=== PATIENT | male | born 1975 | race Caucasian/White ===

== ENCOUNTER 2020-07-06 05:51 | Emergency (ER) | payer OTHER, SELFPAY ==
--- NOTE | ~2020-07-06 | CT_ITS ---
EXAMINATION: CT abdomen pelvis w con EXAM DATE: 07/06/2020 06:54 INDICATION: Left lower quadrant pain, nausea vomiting and diarrhea. TECHNIQUE: Spiral CT of the abdomen and pelvis was performed following intravenous injection of 100 m L Omnipaque 350. Axial, coronal and sagittal images were reviewed. The dose-length product (DLP) fo r this examination was 362.79 mGy-cm. The exposure was tailored according to patient size (auto mA e xposure control), and iterative reconstruction (ASIR) was used as additional dose reduction technique . Comparison is made to prior examination from 08/12/2019. FINDINGS: The liver, spleen, adrenal glands and pancreas are unremarkable. Gallbladder is unremarkab le. No biliary obstruction. Portal and splenic veins are patent. Kidneys enhance symmetrically. T here is no hydronephrosis. The prostate is unremarkable. The bladder is unremarkable. There is no retroperitoneal or pelvic lymphadenopathy. The appendix is normal. The stomach and small bowel are unremarkable. There is colonic fluid, corre late for diarrhea. There is mild sigmoid colonic diverticulosis, equivocal mild adjacent inflammation . No free intraperitoneal gas. The heart is normal in size. There are no pericardial or pleural e ffusions. The lung bases are unremarkable. The bones are unremarkable. IMPRESSION: 1. Mild colonic diverticulosis with equivocal adjacent fat stranding, possible mild uncomplicated di verticulitis. 2. Colonic fluid, diarrhea without wall thickening. Consider enteritis. Reviewed, dictated and finalized at location A. IMPRESSION: 1. Mild colonic diverticulosis with equivocal adjacent fat stranding, possible mild uncomplicated diverticulitis. 2. Colonic fluid, diarrhea without wall thickening. Consider enteritis.
[2020-07-06 05:54] VITALS: BP 107/79; PULSE 96; RESP 19; TEMP 36.1; O2SAT 99
--- NOTE | 2020-07-06 06:10 | PC.NURSE ---
Pt. states he is unable to urinate at this time.
[2020-07-06] MEDS: ONDANSETRON INJ 4 MG/2 ML VIAL IV PUSH (06:23)
[2020-07-06] MEDS: SODIUM CHLORIDE 0.9% IV 1,000 ML 999 ML IV CONT (06:24)
[2020-07-06] MEDS: MORPHINE SULFATE (*CRX) 4 MG/ML INJ IV PUSH (06:25)
--- NOTE | 2020-07-06 06:32 | PC.NURSE ---
Pt. states he will try to urinate after he gets fluids.
[2020-07-06 06:34] LABS: Basophils Percent Auto 0.4 % (0.2-1.2); Eosinophils Absolute Auto 0.2 K/mm3 (0-0.3); Eosinophils Percent Auto 2.1 % (0-4.4); Hemoglobin 17.6 g/dL (14.0-18.0); Immature Granulocyte Absolute 0.04 K/mm3 (0.00-0.031); Immature Granulocyte Percent A 0.4 % (0-0.5); Lymphocytes Absolute Auto 1.95 K/mm3 (0.9-3.2); Lymphocytes Percent Auto 19.3 % (18.3-44.2); Mean Corpuscular Hemoglobin 28.6 pg (26-34); Mean Corpuscular Volume 89.4 fl (80-100); Mean Platelet Volume 9.3 fl (7.4-10.4); Monocytes Absolute Auto 0.8 K/mm3 (0.1-0.6); Monocytes Percent Auto 7.4 % (2.6-8.5); Neutrophils Absolute Auto 7.1 K/mm3 (1.3-6.7); Neutrophils Percent Auto 70.4 % (45.5-73.1); Platelet Count Result 228 k/mm3 (150-375); Red Blood Count 6.15 M/mm3 (4.6-6.20); Red Cell Distribution Width 13.3 % (11.5-14.5); White Blood Count 10.1 K/mm3 (4.5-10.0)
[2020-07-06 06:35] LABS: Alanine Aminotransferase 90 U/L (4-50); Albumin Level 4.1 g/dL (3.5-5.1); Alkaline Phosphatase 158 U/L (38-126); Anion Gap 10 mmol/L (8-16); Aspartate Amino Transferase 37 U/L (17-59); Bilirubin,Total 1.2 mg/dL (0.2-1.3); Blood Urea Nitrogen 17 mg/dL (9-20); Calcium 9.5 mg/dL (8.4-10.2); Carbon Dioxide 28 mmol/L (22-30); Chloride 101 mmol/L (98-107); Estimated CRCL calculation 80 ml/min; Estimated Glomerular Filt Rate > 60; Glucose 170 mg/dL (75-110); Lipase 41 U/L (23-300); Potassium 3.9 mmol/L (3.4-5.0); Sodium 139 mmol/L (137-145)
--- NOTE | 2020-07-06 06:44 | ED.NAVMDI ---
HPI - Nausea/Vomiting/Diarrhea General Chief complaint: Nausea/Vomiting/Diarrhea <Jonh Galvan MD - Last Filed: 07/06/20 07:10> Stated complaint: N/V/D <Jonh Galvan MD - Last Filed: 07/06/20 07:10> Time Seen by Provider: 07/06/20 06:06 <Jonh Galvan MD - Last Filed: 07/06/20 07:10> History of Present Illness HPI Narrative: Patient is a 45-year-old male who presents ER with nausea and vomiting diarrhea. Ongoing for 3 days. Reports he is having a loose stool as small in volume every 15 minutes. He has not been on antibiotics. No known sick contacts. No travel. No drinking from untreated water sources. He has since developed pain in the left lower quadrant of his abdomen that goes into his rectum. Patient also reports he is now dry heaving because he has nothing left to vomit. <Jonh Galvan MD - Last Filed: 07/06/20 07:10> Related Data Home medications: Home Medications Medication Instructions Recorded Confirmed ranitidine HCl [Zantac] 150 mg PO DAILY 08/12/19 11 <Jonh Galvan MD - Last Filed: 07/06/20 07:10> Allergies/Adverse reactions: Allergies Allergy/AdvReac Type Severity Reaction Status Date / Time No Known Allergies Allergy Mild Verified 07/06/20 06:19 <Jonh Galvan MD - Last Filed: 07/06/20 07:10> Review of Systems Review of Systems: All systems reviewed & are unremarkable except as noted in HPI and below <Jonh Galvan MD - Last Filed: 07/06/20 07:10> Constitutional: Constitutional: Denies chills, Denies fever(s) and Denies weakness <Jonh Galvan MD - Last Filed: 07/06/20 07:10> ENT: Denies nasal congestion and Denies sore throat <Jonh Galvan MD - Last Filed: 07/06/20 07:10> Gastrointestinal: Gastrointestinal: Reports abdominal pain, Denies constipation, Reports diarrhea, Reports nausea and Reports vomiting <Jonh Galvan MD - Last Filed: 07/06/20 07:10> Genitourinary: Genitourinary: Denies dysuria and Denies urinary frequency <Jonh Galvan MD - Last Filed: 07/06/20 07:10> PMFSH Past Medical History Medical History: Medical History (Updated 07/06/20 @ 07:08 by Jonh Galvan MD) Myotonic muscular dystrophy <Jonh Galvan MD - Last Filed: 07/06/20 07:10> Surgical History Surgical History: Surgical History (Updated 07/06/20 @ 06:46 by Jonh Galvan MD) No history of previous surgery <Jonh Galvan MD - Last Filed: 07/06/20 07:10> Social History Social History: Social History (Updated 08/12/19 @ 16:06 by Alexi Hinkle) Smoking status: Never smoker Gender identity (if verbalized by the patient): Male <Jonh Galvan MD - Last Filed: 07/06/20 07:10> Exam Narrative: Exam Narrative: GENERAL: Well-appearing, well-nourished, and in no acute distress. HEAD: Normocephalic, atraumatic. CHEST: Clear to auscultation. No respiratory distress. HEART: Regular rate and rhythm. Normal peripheral pulses. ABDOMEN: Soft, nontender, nondistended. EXTREMITIES: Normal range of motion. No edema. SKIN: Warm, dry, no rash. NEURO: Alert and oriented x3. PSYCH: Normal mood and affect. <Jonh Galvan MD - Last Filed: 07/06/20 07:10> Course Vital Signs Vital signs: Vital Signs Temperature 36.1 C L 07/06/20 05:54 Pulse Rate 96 07/06/20 05:54 Respiratory Rate 07/06/20 05:54 Blood Pressure 107/79 07/06/20 05:54 Pulse Oximetry 99 07/06/20 05:54 Temperature 36.1 C L 07/06/20 05:54 Pulse Rate 96 07/06/20 05:54 Respiratory Rate 19 07/06/20 05:54 Blood Pressure 107/79 07/06/20 05:54 Pulse Oximetry 99 07/06/20 05:54 <Jonh Galvan MD - Last Filed: 07/06/20 07:10> Vital Signs Temperature 36.1 C L 07/06/20 05:54 Pulse Rate 96 07/06/20 05:54 Respiratory Rate 19 07/06/20 05:54 Blood Pressure 107/79 07/06/20 05:54 Pulse Oximetry 99 07/06/20 05:54 Temperature 36.1
== END 2020-07-06 07:50 | disposition home or self-care (01) ==
PROVIDERS: Emergency Provider Emergency Medicine
DX: K57.92 Diverticulitis of intestine, part unspecified, without perforation or abscess without bleeding (principal); G71.11 Myotonic muscular dystrophy; K57.90 Diverticulosis of intestine, part unspecified, without perforation or abscess without bleeding
CPT/HCPCS: 36415; 74177; 80053; 83690; 85025; 96361; 96374; 96375; 99284; J2270; J2405; J7030; Q9967

== ENCOUNTER 2023-01-24 09:57 | Inpatient (IN) | payer MEDICARE, MEDICAID, SELFPAY ==
[2023-01-24] VITALS (24 sets, daily range): BP systolic 115–154; BP diastolic 75–104; PULSE 70–87; RESP 12–21; TEMP 35.7–37.2; O2SAT 90–100; BMI 24.5
--- NOTE | ~2023-01-24 | US_ITS ---
Limited Abdominal Sonogram: Real-time sonographic imaging of the right upper quadrant was performed. Clinical History: Pancreatitis Findings: The liver appears normal with no evidence of mass lesion or bile duct dilatation. Main por salvatore vein demonstrates normal direction of flow. The gallbladder is well distended, without evidence o f gallstone. Gallbladder wall is mildly thickened to 5 mm. The common bile duct measures 4 mm. The v isualized pancreas, aorta, and IVC are unremarkable. Impression: Mild gallbladder wall thickening without gallstones, nonspecific finding. Reviewed, dictated and finalized at location M. Impression: Mild gallbladder wall thickening without gallstones, nonspecific finding.
--- NOTE | ~2023-01-24 | CT_ITS ---
Non-contrast CT scan of the Abdomen and Pelvis Clinical indication: Right flank pain Technique: 2.5 mm axial scans were obtained through the abdomen and pelvis without intravenous or or al contrast. Dose reduction technique was used on this scan by utilizing automated exposure control a nd iterative reconstruction technique. The dose-length product (DLP) was 502.97 mGy-cm. COMPARISON: 07/06/2020 Findings: Images through the lung bases reveal probable bibasilar atelectatic change or scarring, le ss likely pneumonia. There is no evidence of renal or ureteral calculi. The kidneys and the ureters are nondilated. The liver, spleen, gallbladder, and adrenals appear normal. There is mild peripancreatic inflammatory change. There is no aortic aneurysm. There is no evidence of bowel obstruction. Images through the pelvis were performed. There is no evidence of ascites or lymphadenopathy. Urinary bladder unremarkable. Prostate gland and seminal vesicles are unremarkable. Impression: Probable mild acute pancreatitis. Correlate clinically. Reviewed, dictated and finalized at [facility]. Impression: Probable mild acute pancreatitis. Correlate clinically.
--- NOTE | ~2023-01-24 | XR_ITS ---
EXAMINATION: XR chest 1V portable INDICATION: Shortness of breath TECHNIQUE: Portable AP chest at 0748 hours COMPARISON: 01/25/2023 FINDINGS: Airspace opacities persist in the lung bases without significant change. Small pleural effu sions are suggested. There is no pneumothorax. The cardiomediastinal silhouette is stable. IMPRESSION: 1. Stable bibasilar airspace opacities, consistent with atelectasis versus pneumonia. Reviewed, dictated and finalized at location A. IMPRESSION: 1. Stable bibasilar airspace opacities, consistent with atelectasis versus pneu monia.
--- NOTE | ~2023-01-24 | MR_ITS ---
EXAMINATION: MR MRCP wo/w con/w 3D wo ind DATE: 01/25/2023 11:46 INDICATION: Pancreatitis TECHNIQUE: Magnetic resonance imaging (MRI) of the abdomen was performed without and with 16 mL Multi kurt intravenous contrast. Sequences included coronal T2-weighted SS-FSE, coronal T2-weighted FS SS- FSE, coronal T2-weighted FS FIESTA, axial T2-weighted FS FIESTA, axial T2-weighted FIESTA, sagittal T 2-weighted SS-FSE, axial T1-weighted dual-echo FSPGR, axial T2-weighted SS-FSE, axial T1-weighted LAV A, axial T2-weighted STIR FSE. Thick-slab T2-weighted FRFSE-XL images were obtained for magnetic reso nance cholangiopancreatography (MRCP). Rotating maximum intensity projection 3-D reconstructions of t he volumetric data were created by the technologist. Postcontrast sequences included a time course of axial T1-weighted LAVA. COMPARISON: None. FINDINGS: ABDOMEN MRI: Small bilateral pleural effusions. Consolidation with volume loss consistent with atelectasis in the basilar segments of the bilateral lower lobes. Additional consolidation in the dependent right middle lobe. Superimposed pneumonia not excludable. Heart size is normal. No pericardial effusion. Small sl iding-type hiatal hernia. Small amount of likely reactive ascites in the visualized abdomen including along the gallbladder, liver and spleen which are otherwise normal no evident cholelithiasis. Bilate ral adrenal glands and right kidney are normal. There are couple subcentimeter cysts at the upper ginette e of the right kidney. There is peripancreatic inflammatory stranding/edema greatest about the tail o f the pancreas consistent with acute interstitial pancreatitis. Additional retroperitoneal edema exte nds around the duodenum and along the bilateral anterior pararenal spaces, left greater than right an d the left paracolic gutter. There is homogeneous pancreatic parenchymal enhancement with no evident necrosis. No loculated fluid collections. No pathologically enlarged abdominal lymphadenopathy. Visua lized portions of bowels are unremarkable. Vasculature is unremarkable with no evident thrombus in th e splenic, superior mesenteric or portal veins. Normal bone marrow signal throughout. ABDOMEN MRCP: Common bile duct is normal in caliber measuring up to 4 mm in maximal diameter. No strictures, mucosa l irregularities or filling defects to suggest choledocholithiasis. No intrahepatic biliary ductal di lation. The main pancreatic duct also appears normal measuring up to 2 mm in maximal diameter at the head of the pancreas and gradually tapering the more distal body and tail. IMPRESSION: 1. Peripancreatic/retroperitoneal inflammatory stranding consistent with radiographically uncomplicat ed acute interstitial pancreatitis. 2. Small amount of reactive ascites in the abdomen. 3. Small bilateral pleural effusions with consolidation in the right middle lobe as well as in the bi lateral lower lobes where there is associated volume loss consistent with atelectasis. Superimposed p neumonia not excludable. 4. Normal gallbladder with no biliary ductal dilation or cholelithiasis/choledocholithiasis. Reviewed, dictated and finalized at location A. IMPRESSION: 1. Peripancreatic/retroperitoneal inflammatory stranding consistent with radiog raphically uncomplicated acute interstitial pancreatitis. 2. Small amount of reactive ascites in the abdomen. 3. Small bilateral pleural effusions with consolidation in the right middle lob e as well as in the bilateral lower lobes where there is associated volume loss consistent with atelectasis. Superimposed pneumonia not excludable. 4. Normal gallbladder with no biliary ductal dilation or cholelithiasis/choledo cholithiasis.
--- NOTE | ~2023-01-24 | XR_ITS ---
XR chest 1V portable 01/25/2023 10:14 Indication: Cough. Crackles. Procedure: AP portable chest Comparison: No prior studies for comparison. Findings: Patchy bilateral airspace disease, compatible with pneumonia. Small right pleural effusion. No pneumothorax. No acute osseous abnormality. Impression: 1: Patchy bilateral airspace disease, compatible with pneumonia. Reviewed, dictated and finalized at location A. Impression: 1: Patchy bilateral airspace disease, compatible with pneumonia.
--- NOTE | ~2023-01-24 | NM_ITS ---
EXAMINATION: NM hepatobiliary wo pharm DATE: 01/28/2023 10:14 INDICATION: Right upper quadrant abdominal pain. COMPARISON: MRCP 01/25/2023 TECHNIQUE: 5.5 mCi Tc-99m mebrofenin (Choletec) was administered intravenously. Scintigraphic images of the abdomen were obtained for one hour and 15 minutes. Then, 2 mg morphine IV was administered, a nd imaging was continued for 30 minutes. FINDINGS: There is normal clearance of radiotracer from the blood pool. There is homogeneous tracer u ptake by the liver. Activity progresses to the bowel and gallbladder. IMPRESSION: 1. Patent cystic duct and common duct. Reviewed, dictated and finalized at location A.
[2023-01-24 10:53] LABS: Basophils Percent Auto 0.4 % (0.2-1.2); Eosinophils Absolute Auto 0.2 K/mm3 (0-0.3); Eosinophils Percent Auto 1.4 % (0-4.4); Hematocrit 50.4 % (42.0-52.0); Immature Granulocyte Absolute 0.05 K/mm3 (0.00-0.031); Immature Granulocyte Percent A 0.4 % (0-0.5); Lymphocytes Absolute Auto 1.52 K/mm3 (0.9-3.2); Lymphocytes Percent Auto 13.5 % (18.3-44.2); Mean Corpuscular HGB Conc 31.7 g/dl (32-36); Mean Corpuscular Hemoglobin 28.5 pg (26-34); Mean Corpuscular Volume 89.7 fl (80-100); Mean Platelet Volume 8.8 fl (7.4-10.4); Monocytes Absolute Auto 0.7 K/mm3 (0.1-0.6); Neutrophils Absolute Auto 8.8 K/mm3 (1.3-6.7); Neutrophils Percent Auto 78.3 % (45.5-73.1); Platelet Count Result 247 k/mm3 (150-375); Red Blood Count 5.62 M/mm3 (4.6-6.20); Red Cell Distribution Width 13.8 % (11.5-14.5); White Blood Count 11.2 K/mm3 (4.5-10.0)
--- NOTE | 2023-01-24 11:05 | ED.ABDPAIN ---
HPI - Abdominal Pain General Chief Complaint: Abdominal Pain <RICKEY Vargas Last Filed: 01/24/23 12:39> Stated Complaint: left abdominal pain starting last night <RICKEY Vargas Last Filed: 01/24/23 12:39> Time Seen by Provider: 01/24/23 10:30 <RICKEY Vargas Last Filed: 01/24/23 12:39> Source: patient <RICKEY Vargas Last Filed: 01/24/23 12:39> Mode of arrival: ambulatory <RICKEY Vargas Last Filed: 01/24/23 12:39> Limitations: no limitations <RICKEY Vargas Last Filed: 01/24/23 12:39> History of Present Illness HPI narrative: Patient is a 47 y/o male, with past medical history of myotonic muscular dystrophy, who presents to the ED with c/o right-sided abdominal pain. Patient reports the pain began last night around midnight and his right mid back. It has since radiated around his right sided abdomen. He complains of pain from his right upper abdomen to his right lower groin. He does report having some nausea, vomiting, dry heaving associated with the pain. He has never had pain like this before. Denies history of kidney stones. Denies dysuria, difficulty urinating, hematuria, diarrhea, constipation, fevers. Patient does mention having an ongoing issue with a rectal hemorrhoid that occasionally bleeds with bowel movements. His last bowel movement was yesterday and normal. <RICKEY Vargas Last Filed: 01/24/23 12:39> Related Data Home Medications: Home Medications Medication Instructions Recorded Confirmed sildenafil 100 mg tablet 100 mg PO DAILY PRN Sexual Activity 01/24/23 01/24/23 <RICKEY Vargas Last Filed: 01/24/23 12:39> Allergies/Adverse Reactions: Allergies Allergy/AdvReac Type Severity Reaction Status Date / Time No Known Allergies Allergy Mild Verified 01/24/23 10:39 <RICKEY Vargas Last Filed: 01/24/23 12:39> Review of Systems Review of Systems: CONSTITUTIONAL: Denies fever, chills, or sweats. CARDIOVASCULAR: Denies chest pain. RESPIRATORY: Denies dyspnea. GASTROINTESTINAL: See HPI. GENITOURINARY: Denies difficulty urinating, dysuria or hematuria. SKIN: Denies rash or itching. MUSCULOSKELETAL: See HPI. NEUROLOGIC: Denies headache, numbness, or weakness. <Kenna Regalado PA-C - Last Filed: 01/24/23 12:39> All systems reviewed & are unremarkable except as noted in HPI and below <Kenna Regalado PA-C - Last Filed: 01/24/23 12:39> PMFSH Past Medical History Medical History: Medical History Myotonic muscular dystrophy <Kenna Regalado PA-C - Last Filed: 01/24/23 12:39> Surgical History Surgical History: Surgical History No history of previous surgery <Kenna Regalado PA-C - Last Filed: 01/24/23 12:39> Family History Family History: Family History Mother COVID <RICKEY Vargas Last Filed: 01/24/23 12:39> Social History Social History: Social History Social History: He lives with his father and has no children. He is single. He is currently unemployed. Code status full code Smoking status: Never smoker Alcohol intake: former Alcohol use details: None in last 1 year Substance use: never Substance use type: does not use Lack of Transportation: No Lack of Food: Never True Current Housing: I Have Housing Concerned About Future Housing: No Difficulty Paying Gas/Electric Bills: No Difficulty Paying for Meds: No Currently Unemployed: No Education: High School Diploma/GED Difficulty w/ Childcare or Family Care: No Gender identity (if verbalized by the patient): Male Spiritual care concerns: No <Kenna Jasmine
[2023-01-24] MEDS: SODIUM CHLORIDE 0.9% IV 1,000 ML 999 ML IV CONT ×3 (11:07→12:29)
[2023-01-24] MEDS: ONDANSETRON INJ 4 MG/2 ML VIAL IV PUSH (11:08)
[2023-01-24] MEDS: MORPHINE SULFATE (*CRX) 4 MG/ML INJ IV PUSH ×2 (11:08→15:39)
[2023-01-24 11:13] LABS: Alanine Aminotransferase 132 U/L (6-50); Albumin Level 3.8 g/dL (3.5-5.1); Alkaline Phosphatase 230 U/L (38-126); Aspartate Amino Transferase 169 U/L (17-59); Blood Urea Nitrogen 14 mg/dL (9-20); Calcium 8.9 mg/dL (8.4-10.2); Carbon Dioxide 35 mmol/L (22-30); Chloride 103 mmol/L (98-107); Estimated CRCL calculation 100 ml/min; Estimated Glomerular Filt Rate > 60; Glucose 219 mg/dL (65-110)
[2023-01-24 11:14] LABS: Anion Gap 3 mmol/L (8-16); Bilirubin,Total 2.4 mg/dL (0.2-1.3); Sodium 141 mmol/L (137-145)
[2023-01-24 12:15] LABS: Lipase 28203 U/L (23-300)
--- NOTE | 2023-01-24 13:27 | PM.IMHP ---
H&P: HPI History of Present Illness Date/Time: 01/24/23 13:27 Chief Complaint: Abdominal pain Narrative: This is a 47-year-old male patient who has a history of myotonic muscular dystrophy. The patient came to the emergency room with complaints of abdominal pain that had started last night around midnight. It started in his right upper quadrant and came around to his mid back. The patient starts in the right upper quadrant and extends through the right lower quadrant. He denies any fever chills. No difficulty urinating. He does endorse nausea with vomiting. His bowel movements were normal yesterday. The patient was medicated with morphine prior to me examining him in the emergency room. The patient was snoring loudly but denies any sleep apnea. The patient was also given IV fluids and Zofran in the emergency room. His white count is 11.2. AST is 169, ALT is 132, alkaline phosphatase is 230. Lipase is 28,203. The patient denies any alcohol abuse. His alcohol level is less than 10. Abdominal ultrasound is read as mild gallbladder wall thickening without gallstones nonspecific findings. Abdominal pelvis CT was read as probable mild acute pancreatitis. GI has been consulted. The patient is being admitted to observation status on the date of service of 01/24/2023. Review of Systems Review of Systems: All systems reviewed & are unremarkable except as noted in HPI and below Constitutional: Constitutional: Reports as per HPI and Reports no additional constitutional complaints Eyes: Eyes: Reports as per HPI and Reports no additional eye complaints ENT: Reports system reviewed and no additional complaints, except as documented and Reports Normal hearing present Cardiovascular: Cardiovascular: Reports no additional cardiovascular complaints Respiratory: Respiratory: Reports no additional respiratory complaints and Reports no additional respiratory complaints Gastrointestinal: Gastrointestinal: Reports as per HPI and Reports no additional gastrointestinal complaints Musculoskeletal: Musculoskeletal: Reports no additional musculoskeletal complaints Integumentary/Breasts: Skin/Breast: Reports system reviewed and no additional complaints, except as docu and Reports as per HPI Neurologic: Reports system reviewed and no additional complaints, except as documented, Reports as per HPI and Reports Normal hearing present Psychiatric: Psychiatric: Reports no additional psychiatric complaints and Reports as per HPI Endocrine: Endocrine: Reports no additional endocrine complaints Hematologic/Lymphatic: Hematologic/Lymphatic: Reports no additional hematologic/lymphatic complaints Allergic/Immunologic: Allergic/Immunologic: Reports no additional allergic/immunologic complaints [facility] Past Medical History Medical History Myotonic muscular dystrophy Surgical History Surgical History No history of previous surgery Family History Family History Mother COVID Social History Social History (Updated 01/24/23 @ 15:38 by Eun Gleason NP) Social History: He lives with his father and has no children. He is single. He is currently unemployed. Code status full code Smoking status: Never smoker Alcohol intake: former Alcohol use details: None in last 1 year Substance use: never Substance use type: does not use Lack of Transportation: No Lack of Food: Never True Current Housing: I Have Housing Concerned About Future Housing: No Difficulty Paying Gas/Electric Bills: No Difficulty Paying for Meds: No Currently Unemployed: No Education: High School Diploma/GED Difficulty w/ Childcare or Family Care: No Gender identity (if verbalized by the patient): Male Spiritual care concerns: No Meds Home Medications and Allergies Ho
--- NOTE | 2023-01-24 14:14 | PC.NURSE ---
patient sleeping at this time and his oxygen came down to 85% on room air. patient woken up and states he does have problems with apnea but refuses to wear cpap at night. patient placed on 2l oxygen via [place]
[2023-01-24 14:56] LABS: Triglycerides 85 mg/dL (<150)
[2023-01-24 15:17] LABS: Ethanol < 10 mg/dL (<10)
--- NOTE | 2023-01-24 15:17 | ADMGEN ---
This patient, Carlos Perrin II, was admitted to [facility] Surg Room 313-01. Patient/family oriented to hospital policies and general routines including ID bracelet, bed and alarms, visiting hours, pain management, procedures, bathroom and other care routines, personal items, smoking policy, room service/diet, and visiting hours. Information on how to activate the Rapid Response Team has been discussed. Patient/Family are encouraged to report perceived risks to care and to ask questions if they do not understand what they are told or what they should do.
--- NOTE | 2023-01-24 16:41 | WPDGICN ---
Assessment and Plan Assessment and plan (1) Acute pancreatitis: Qualifiers: Acute pancreatitis complication: unspecified Pancreatitis type: unspecified pancreatitis type Qualified Code(s): K85.90 - Acute pancreatitis without necrosis or infection, unspecified Code(s): K85.90 - Acute pancreatitis without necrosis or infection, unspecified Status: Acute Assessment and Plan: etiology of his pancreatitis is unclear. CT scan did not show evidence of biliary disease. Ultrasound which was done today also was normal. Because he does not drink alcohol, I suspect he may have some biliary sludge. I would consider MRCP tomorrow or perhaps a HIDA scan. (2) Hyperbilirubinemia: Code(s): E80.6 - Other disorders of bilirubin metabolism Status: Acute Assessment and Plan: Bilirubin is 2.4. In 2020, the only other labs we have for reference, his bilirubin was normal as were the LFTs. (3) Transaminitis: Code(s): R74.01 - Elevation of levels of liver transaminase levels Status: Acute Assessment and Plan: No prior history of liver disease. Transaminases were normal 3 years ago. I suspect that he therefore does have biliary disease that we have not yet detected. Plan Although he is not ready to be fat I think that we can give him water and ice chips and then perhaps a clear liquid diet if he tolerates water. Will monitor his liver enzymes and lipase watch for any signs of worsening of pancreatitis such as with hypocalcemia GI Consult Note Consult date/time: 01/24/23 16:41 HPI: Carlos Perrin II is a 47 year old male who will cup yesterday feeling nauseated. He had pain throughout the upper abdomen gradually spread to the entire abdomen. Also radiated to his back. Was constant and relentless. He had some nausea and dry heaves with that as well. He has had nothing to eat all day. He presented to the emergency room this morning with the symptoms. He states he has never had problems before with his liver or gallbladder. He does not drink alcohol. However he was found have pancreatitis with a lipase of over 28,000. Also L F TS were elevated with bilirubin 2.4, transaminases in the 1 100s and alkaline phosphatase 230. Prior to yesterday he had a good appetite. He has had no weight loss. He does not take any prescription medications at home. He is not aware of any family history of pancreatic disease. Review of Systems Review of Systems: All systems reviewed & are unremarkable except as noted in HPI and below PMFSH Past Medical History Medical History Myotonic muscular dystrophy Surgical History Surgical History No history of previous surgery Family History Family History Mother COVID Social History Social History Social History: He lives with his father and has no children. He is single. He is currently unemployed. Code status full code Smoking status: Never smoker Alcohol intake: former Alcohol use details: None in last 1 year Substance use: never Substance use type: does not use Lack of Transportation: No Lack of Food: Never True Current Housing: I Have Housing Concerned About Future Housing: No Difficulty Paying Gas/Electric Bills: No Difficulty Paying for Meds: No Currently Unemployed: No Education: High School Diploma/GED Difficulty w/ Childcare or Family Care: No Gender identity (if verbalized by the patient): Male Spiritual care concerns: No Meds Home Medications and Allergies Home Medications Medication Instructions Recorded Confirmed Type sildenafil 100 mg tablet 100 mg PO DAILY PRN Sexual Activity 01/24/23 01/24/23 History Allergies Allergy/AdvReac Type Severity Reaction S
[2023-01-24] MEDS: SODIUM CHLORIDE 0.9% IV 1,000 ML 200 ML IV CONT (17:40)
[2023-01-24] MEDS: SODIUM CHLORIDE 0.9% IV 1,000 ML 20 ML IV CONT (22:33)
[2023-01-25 03:27] LABS: Appearance Urine Clear (Clear); Bilirubin Urine 1+ (Negative); Blood Urine Negative (Negative); Color Urine Dark Yellow (Yellow); Glucose Urine UA 2+ mg/dL (Negative); Ketones Urine Negative (Negative); Leukocyte Esterase Ur Negative LEU/UL (Negative); Nitrate Urine Negative (Negative); Protein Urine Negative (Negative); Specific Grav Ur 1.013 (1.001-1.035); pH Urine 6.5 (5.0-9.0)
[2023-01-25] MEDS: SODIUM CHLORIDE 0.9% IV 1,000 ML 200 ML IV CONT (03:33)
[2023-01-25 03:34] LABS: Add Urine Microscopic? YES
[2023-01-25 05:44] VITALS: BP 98/65; PULSE 53; RESP 14; TEMP 36.6; O2SAT 98
[2023-01-25 05:50] LABS: Barbiturate Screen Urine Negative (Negative); Benzodiazepines Screen Urine Negative (Negative)
[2023-01-25 05:51] LABS: Cannabinoid Screen Urine Negative (Negative); Cocaine Screen Urine Negative (Negative); Methadone Screen Urine Negative (Negative); Opiate Screen Urine Positive (Negative); Phencyclidine Screen Urine Negative (Negative)
[2023-01-25 06:24] LABS: Amphetamine Screen Urine Positive (Negative)
--- NOTE | 2023-01-25 06:56 | WPDGIPROGNO ---
Progress Note: A&P Assessment and Plan (1) Acute pancreatitis: Qualifiers: Acute pancreatitis complication: unspecified Pancreatitis type: unspecified pancreatitis type Qualified Code(s): K85.90 - Acute pancreatitis without necrosis or infection, unspecified Code(s): K85.90 - Acute pancreatitis without necrosis or infection, unspecified Status: Acute Assessment and Plan: He states he has never had problems before with his liver or gallbladder.? However, he told me today that he had a similar attack of pain about a month ago that resolved on its own. He does not drink alcohol.? However he was found have pancreatitis with a lipase of over 28,000.? Also L F TS were elevated with bilirubin 2.4, transaminases in the 1 100s and alkaline phosphatase 230.? Prior to yesterday he had a good appetite.? He has had no weight loss.? He does not take any prescription medications at home.? He is not aware of any family history of pancreatic disease. (2) Hyperbilirubinemia: Code(s): E80.6 - Other disorders of bilirubin metabolism Status: Acute Assessment and Plan: This suggest possible biliary source of pancreatitis. Labs unable to draw blood this morning for some reason. (3) Transaminitis: Code(s): R74.01 - Elevation of levels of liver transaminase levels Status: Acute Assessment and Plan: Repeat labs are pending. Plan Will obtain MRCP today. I suspect that he has biliary sludge and/or stones Subjective Date/time seen: 01/25/23 06:56 his pain is a little better today. No vomiting years at night. He today told me that he had an episode of similar pain about a month ago but resolved on its own after few hours. I told that that, in addition to his present situation with elevated LFT suggests that he is probably passing gallstones or sludge. Exam Const: General: awake and tired appearing Nutritional Appearance: average body habitus Orientation/consciousness: patient oriented x3 Resp: Auscultation: clear to auscultation bilaterally Cardio: Rhythm: regular rhythm GI: Inspection: normal to inspection GI Palp: Yes Soft to palpation, Yes Tenderness to palpation present (GI) ( Diffusely) and Yes Guarding due to palpation present (GI) ( upper abdomen) Auscultation: normal bowel sounds Neuro: General: patient oriented x3 Objective Data Vital Signs Vital Signs: Vital Signs - 24 hr 01/24/23 10:17 01/24/23 11:12 01/24/23 10:35 Temperature 37.2 C Pulse Rate 82 85 70 Respiratory Rate 16 17 21 H Blood Pressure 152/100 H 142/87 H Pulse Oximetry 99 96 100 Oxygen Delivery 01/24/23 10:45 01/24/23 10:46 01/24/23 11:00 Temperature Pulse Rate 82 86 80 Respiratory Rate 18 12 21 H Blood Pressure 152/103 H Pulse Oximetry 97 100 Oxygen Delivery 01/24/23 11:01 01/24/23 11:08 01/24/23 11:23 Temperature Pulse Rate 87 79 76 Respiratory Rate 16 14 Blood Pressure 154/104 H 142/87 H Pulse Oximetry 99 95 98 Oxygen Delivery 01/24/23 11:30 01/24/23 11:47 01/24/23 12:00 Temperature Pulse Rate 81 81 83 Respiratory Rate 17 18 17 Blood Pressure Pulse Oximetry 90 94 96 Oxygen Delivery 01/24/23 12:16 01/24/23 12:40 01/24/23 12:47 Temperature Pulse Rate 87 Respiratory Rate 19 Blood Pressure Pulse Oximetry 96 94 95 Oxygen Delivery 01/24/23 13:01 01/24/23 13:16 01/24/23 13:30 Temperature Pulse Rate Respiratory Rate Blood Pressure Pulse Oximetry 92 94 94 Oxygen Delivery 01/24/23 13:46 01/24/23 14:01 01/24/23 14:09 Temperature Pulse Rate Respiratory Rate Blood Pressure 121/91 H Pulse Oximetry 90 92 96 Oxygen Delivery 01/24/23 15:05 01/24/23 19:42 01/24/23 21:41 Temperature 35.7 C L 36.2 C L Pulse Rate 72 71 Respiratory Rate 20 14 Blood Pressure 150/98 H 115/75 Pulse Oximetry 96 97 90 Oxygen Delivery Room Air 01/25/23 05:44 Temperature 36.6 C Pulse
[2023-01-25 07:00] LABS: Cholesterol 128 mg/dL (0-200); HDL Direct 35 mg/dL; Triglycerides 91 mg/dL (<150)
[2023-01-25 07:11] LABS: LDL Cholesterol Direct 53 mg/dL
[2023-01-25 08:23] LABS: Basophils Percent Auto 0.2 % (0.2-1.2); Eosinophils Absolute Auto 0.2 K/mm3 (0-0.3); Eosinophils Percent Auto 1.8 % (0-4.4); Hematocrit 46.5 % (42.0-52.0); Hemoglobin 14.4 g/dL (14.0-18.0); Immature Granulocyte Absolute 0.03 K/mm3 (0.00-0.031); Immature Granulocyte Percent A 0.3 % (0-0.5); Lymphocytes Absolute Auto 1.45 K/mm3 (0.9-3.2); Lymphocytes Percent Auto 16.1 % (18.3-44.2); Mean Corpuscular Hemoglobin 28.9 pg (26-34); Mean Corpuscular Volume 93.2 fl (80-100); Mean Platelet Volume 8.8 fl (7.4-10.4); Monocytes Absolute Auto 0.5 K/mm3 (0.1-0.6); Neutrophils Absolute Auto 6.8 K/mm3 (1.3-6.7); Neutrophils Percent Auto 75.6 % (45.5-73.1); Platelet Count Result 214 k/mm3 (150-375); Red Blood Count 4.99 M/mm3 (4.6-6.20)
[2023-01-25 08:28] LABS: Alanine Aminotransferase 156 U/L (6-50); Albumin Level 2.9 g/dL (3.5-5.1); Alkaline Phosphatase 264 U/L (38-126); Anion Gap -1 mmol/L (8-16); Aspartate Amino Transferase 121 U/L (17-59); Bilirubin,Total 4.2 mg/dL (0.2-1.3); Blood Urea Nitrogen 11 mg/dL (9-20); Calcium 7.8 mg/dL (8.4-10.2); Carbon Dioxide 32 mmol/L (22-30); Chloride 110 mmol/L (98-107); Estimated CRCL calculation 135 ml/min; Estimated Glomerular Filt Rate > 60; Glucose 92 mg/dL (65-110); Lipase 1914 U/L (23-300); Magnesium 2.1 mg/dL (1.6-2.3); Potassium 5.2 mmol/L (3.4-5.0); Sodium 141 mmol/L (137-145)
[2023-01-25 08:32] LABS: Lactic Acid Reflex 1.1 mmol/L (0.7-2.0)
--- NOTE | 2023-01-25 09:30 | P.PNIM_ITS ---
Progress Note: A&P Assessment and Plan (1) Acute pancreatitis: Qualifiers: Acute pancreatitis complication: unspecified Pancreatitis type: unspecified pancreatitis type Qualified Code(s): K85.90 - Acute pancreatitis without necrosis or infection, unspecified Code(s): K85.90 - Acute pancreatitis without necrosis or infection, unspecified Status: Acute Assessment and Plan: * CT of the abdomen shows acute pancreatitis * Lipase 97545 upon admission, currently 1914 * AST/ALT elevated 156/264 T. Bili 4.2 * IV fluids given in the ed and continued at 200mL/hr * Continue to trend lipase and labs * pain medications on board * GI consulted thank you for your help * RUQ ultrasound showed mild gallbladder wall thickening without gallstones * MRCP ordered for today * Continue NPO diet for now * Consider general surgery for gall bladder depending on further findings * Adjust therapy as indicated (2) Elevated liver enzymes: Code(s): R74.8 - Abnormal levels of other serum enzymes Status: Acute Assessment and Plan: * GI has been consulted * Hepatitis panel negative * Abdominal ultrasound was performed and read as mild gallbladder wall thickening without gallstones, nonspecific finding (3) Chest congestion: Code(s): R09.89 - Other specified symptoms and signs involving the circulatory and respiratory systems Status: Acute Assessment and Plan: * Wet in nature * Stated that he is a smoker * Complaints of a cough, with sputum production * Chest xray ordered * BNP ordered * Consider Lasix, considering the amount of fluids he is getting Time Spent With Patient Time: 54 minutes Time with patient: Greater than 35 minutes Subjective Date/time seen: 01/25/23 09:30 Interval history: 01/25/23929 Patient is lying in bed pretty drowsy. He denies any current pain. He does have some urine which is dark in nature. He does sound pretty rhonchus with auscultation. Will get a chest x-ray for further evaluation. Currently denies any chest pain, shortness a breath, nausea, vomiting, diarrhea constipation. He did state that he has a cough however he cannot tell me what color was coming up. He did tell me that he does smoke. Complete review of systems was unable to really be obtained due to patient's mental status at this time. Patient does seem very lethargic. 01/24/23? 13:27 This is a 47-year-old male patient who has a history of myotonic muscular dystrophy.? The patient came to the emergency room with complaints of abdominal pain that had started last night around midnight.? It started in his right upper quadrant and came around to his mid back.? The patient starts in the right upper quadrant and extends through the right lower quadrant.? He denies any fever chil ls.? No difficulty urinating.? He does endorse nausea with vomiting.? His bowel movements were normal yesterday.? The patient was medicated with morphine prior to me? examining him in the emergency room.? The patient was snoring loudly but denies any sleep apnea.? The patient was also given IV fluids and Zofran in the emergency room.? His white count is 11.2.? AST is 169, ALT is 132, alkaline phos phatase is 230.? Lipase is 28,203.? The patient denies any alcohol abuse.? His alcohol level is less than 10.? Abdominal ultrasound is read as mild gallbladder wall thickening without gallstones nonspecific findings.? Abdominal pelvis CT was read as probable mild acute pancreatitis
--- NOTE | 2023-01-25 09:30 | PM.IMPN ---
Progress Note: A&P Assessment and Plan (1) Acute pancreatitis: Qualifiers: Acute pancreatitis complication: unspecified Pancreatitis type: unspecified pancreatitis type Qualified Code(s): K85.90 - Acute pancreatitis without necrosis or infection, unspecified Code(s): K85.90 - Acute pancreatitis without necrosis or infection, unspecified Status: Acute Assessment and Plan: CT of the abdomen shows acute pancreatitis Lipase 01302 upon admission, currently 1914 AST/ALT elevated 156/264 T. Bili 4.2 IV fluids given in the ed and continued at 200mL/hr Continue to trend lipase and labs pain medications on board GI consulted thank you for your help RUQ ultrasound showed mild gallbladder wall thickening without gallstones MRCP ordered for today Continue NPO diet for now Consider general surgery for gall bladder depending on further findings Adjust therapy as indicated (2) Elevated liver enzymes: Code(s): R74.8 - Abnormal levels of other serum enzymes Status: Acute Assessment and Plan: GI has been consulted Hepatitis panel negative Abdominal ultrasound was performed and read as mild gallbladder wall thickening without gallstones, nonspecific finding (3) Chest congestion: Code(s): R09.89 - Other specified symptoms and signs involving the circulatory and respiratory systems Status: Acute Assessment and Plan: Wet in nature Stated that he is a smoker Complaints of a cough, with sputum production Chest xray ordered BNP ordered Consider Lasix, considering the amount of fluids he is getting Time Spent With Patient Time: 54 minutes Time with patient: Greater than 35 minutes Subjective Date/time seen: 01/25/23 09:30 Interval history: 01/25/23 0930 Patient is lying in bed pretty drowsy. He denies any current pain. He does have some urine which is dark in nature. He does sound pretty rhonchus with auscultation. Will get a chest x-ray for further evaluation. Currently denies any chest pain, shortness a breath, nausea, vomiting, diarrhea constipation. He did state that he has a cough however he cannot tell me what color was coming up. He did tell me that he does smoke. Complete review of systems was unable to really be obtained due to patient's mental status at this time. Patient does seem very lethargic. 01/24/23? 13:27 This is a 47-year-old male patient who has a history of myotonic muscular dystrophy.? The patient came to the emergency room with complaints of abdominal pain that had started last night around midnight.? It started in his right upper quadrant and came around to his mid back.? The patient starts in the right upper quadrant and extends through the right lower quadrant.? He denies any fever chills.? No difficulty urinating.? He does endorse nausea with vomiting.? His bowel movements were normal yesterday.? The patient was medicated with morphine prior to me? examining him in the emergency room.? The patient was snoring loudly but denies any sleep apnea.? The patient was also given IV fluids and Zofran in the emergency room.? His white count is 11.2.? AST is 169, ALT is 132, alkaline phosphatase is 230.? Lipase is 28,203.? The patient denies any alcohol abuse.? His alcohol level is less than 10.? Abdominal ultrasound is read as mild gallbladder wall thickening without gallstones nonspecific findings.? Abdominal pelvis CT was read as probable mild acute pancreatitis.? GI has been consulted.? The patient is being admitted to observation status on the date of service of 01/24/2023. Review of Systems Review of Systems: ROS unobtainable: Yes unobtainable due to medical condition and unobtainable due to mental status Exam Narrative: General: well-nourished, tired-appearing 47-year-old male, laying in bed, comfortable, NARD Neuro: drowsy lethargic, alert and oriented x1, speech clear,
[2023-01-25 10:19] LABS: NT Pro B Type Natriuretic Pept 541 pg/mL (19.9-100)
[2023-01-25 10:30] LABS: Thyroid Stimulating Hormone Reflex 0.272 uIU/mL (0.465-4.68)
[2023-01-25 10:36] LABS: Ammonia < 9 umol/L (9-30)
[2023-01-25 10:43] LABS: Hepatitis B Surface Antigen Negative (Negative)
[2023-01-25 10:49] LABS: HAV RESULT Negative (Negative); Hepatitis B Core IgM Result Negative (Negative)
[2023-01-25 11:00] LABS: Hepatitis C Virus Antibody Negative (Negative)
[2023-01-25 12:34] LABS: Total Triiodothyronine (T3) 1.08 NG/ML (0.97-1.69)
[2023-01-25 12:36] LABS: Prothrombin Time 13.2 Seconds (11.1-14.7)
[2023-01-25 14:00] VITALS: BP 103/62; PULSE 74; RESP 12; TEMP 36.6; O2SAT 80
[2023-01-25] MEDS: FUROSEMIDE INJ 40 MG/4 ML VIAL IV PUSH (15:00)
[2023-01-25 17:47] VITALS: O2SAT 93
[2023-01-25 17:48] VITALS: O2SAT 96
[2023-01-25 21:56] VITALS: BP 103/63; PULSE 84; RESP 24; TEMP 36.5; O2SAT 90
[2023-01-26] VITALS (8 sets, daily range): BP systolic 114–128; BP diastolic 71–82; PULSE 81–89; RESP 18–22; TEMP 36.4–36.6; O2SAT 92–100
--- NOTE | 2023-01-26 | ECHO_ITS ---
Patient Info Name: Carlos Perrin Age: 47 years : 1975 Gender: Male Ht: 74 in Wt: 175 lbs BSA: 2.03 m2 HR: 81 bpm BP: 114 / 71 mmHg Heart Rhythm: Sinus Rhythm Technical Quality: Fair Exam Date: 01/26/2023 1:28 PM Exam Location: [facility] Pulmonary Exam Room: [facility] Patient Status: Inpatient Admit Date: 01/25/2023 Staff Ordering Physician: Galen Benavides Gold Leaf Layer: Kristin Gerrado RDCS Attending Provider: Paul Castro MD Referring Physician: Kennedy MARTIN; Exam Type: CA echo doppler color flow Study Info Indications - BILATERAL PLEURAL EFFUSION EDEMA Complete two-dimensional, color flow and Doppler transthoracic echocardiogram is performed. Summary 1. Complete two-dimensional, color flow and Doppler transthoracic echocardiogram is performed. 2. Grade 1 left ventricular diastolic dysfunction. 3. Otherwise unremarkable echocardiogram. Left Ventricle Left ventricular chamber dimension is normal. Left ventricular systolic function is normal, estimated at 65-70%. The left ventricular diastolic function is grade I diastolic dysfunction. Right Ventricle Right ventricular chamber dimension is normal. Left Atria Left atrial chamber dimension is normal. Right Atria Right atrial chamber dimension is normal. Aortic Valve The aortic valve is normal. Pulmonic Valve The pulmonic valve is not well visualized. Mitral Valve The mitral valve has normal leaflets. Tricuspid Valve The tricuspid valve leaflets are normal. Pericardium/Pleural The pericardium appears normal. Aorta The aortic root size at the sinus of Valsalva is normal. Left Ventricular Outflow Tract Name Value Normal LVOT 2D LVOT Diameter 2.1 cm LVOT Doppler LVOT Peak Gradient 5 mmHg LVOT Mean Gradient 3 mmHg LVOT VTI 17 cm LVOT VTI/AV VTI Ratio 0.9 LVOT Stroke Volume 58 ml LVOT CO 16.7 l/min LVOT CI 8.2 l/min/m2 Pulmonic Valve Name Value Normal PV Doppler PV Peak Gradient 4 mmHg Mitral Valve Name Value Normal MV Doppler MV Decel [place] 364 cm/s2 MV PHT 40 ms MV Area (PHT) 5.5 cm2 4.0-5.0 MV Diastolic Function MV E Peak Velocity 51 cm/s MV A Peak Velocity
[2023-01-26] MEDS: SODIUM CHLORIDE 0.9% IV 1,000 ML 100 ML IV CONT (05:35)
[2023-01-26 06:50] LABS: Basophils Percent Auto 0.2 % (0.2-1.2); Eosinophils Absolute Auto 0.2 K/mm3 (0-0.3); Eosinophils Percent Auto 1.4 % (0-4.4); Hematocrit 45.2 % (42.0-52.0); Hemoglobin 14.1 g/dL (14.0-18.0); Immature Granulocyte Absolute 0.05 K/mm3 (0.00-0.031); Immature Granulocyte Percent A 0.5 % (0-0.5); Lymphocytes Percent Auto 12.2 % (18.3-44.2); Mean Corpuscular HGB Conc 31.2 g/dl (32-36); Mean Corpuscular Volume 89.9 fl (80-100); Mean Platelet Volume 8.9 fl (7.4-10.4); Monocytes Absolute Auto 0.7 K/mm3 (0.1-0.6); Monocytes Percent Auto 6.6 % (2.6-8.5); Neutrophils Absolute Auto 8.5 K/mm3 (1.3-6.7); Neutrophils Percent Auto 79.1 % (45.5-73.1); Platelet Count Result 214 k/mm3 (150-375); Red Blood Count 5.03 M/mm3 (4.6-6.20); Red Cell Distribution Width 13.9 % (11.5-14.5); White Blood Count 10.7 K/mm3 (4.5-10.0)
[2023-01-26 08:32] LABS: Alanine Aminotransferase 142 U/L (6-50); Albumin Level 3.1 g/dL (3.5-5.1); Alkaline Phosphatase 405 U/L (38-126); Anion Gap 3 mmol/L (8-16); Aspartate Amino Transferase 93 U/L (17-59); Bilirubin,Total 3.7 mg/dL (0.2-1.3); Blood Urea Nitrogen 11 mg/dL (9-20); Calcium 8.1 mg/dL (8.4-10.2); Carbon Dioxide 34 mmol/L (22-30); Chloride 100 mmol/L (98-107); Estimated CRCL calculation 117 ml/min; Estimated Glomerular Filt Rate > 60; Glucose 141 mg/dL (65-110); Lipase 297 U/L (23-300); Potassium 3.7 mmol/L (3.4-5.0); Sodium 137 mmol/L (137-145)
[2023-01-26 08:50] LABS: CRP 17.3 mg/dL (<1.0)
--- NOTE | 2023-01-26 09:48 | WPDGIPROGNO ---
Progress Note: A&P Assessment and Plan (1) Acute pancreatitis: Qualifiers: Acute pancreatitis complication: unspecified Pancreatitis type: unspecified pancreatitis type Qualified Code(s): K85.90 - Acute pancreatitis without necrosis or infection, unspecified Code(s): K85.90 - Acute pancreatitis without necrosis or infection, unspecified Status: Acute Assessment and Plan: He states he has never had problems before with his liver or gallbladder.? However, he told me today that he had a similar attack of pain about a month ago that resolved on its own. He does not drink alcohol.? However he was found have pancreatitis with a lipase of over 28,000.? Also L F TS were elevated with bilirubin 2.4, transaminases in the 1 100s and alkaline phosphatase 230.? Prior to yesterday he had a good appetite.? He has had no weight loss.? He does not take any prescription medications at home.? He is not aware of any family history of pancreatic disease. His lipase is now down to normal and he is no longer having abdominal pain. We can advance his diet and send him home on a low-fat diet with Creon for 3 weeks. (2) Hyperbilirubinemia: Code(s): E80.6 - Other disorders of bilirubin metabolism Status: Acute Assessment and Plan: Bilirubin today is down slightly to 3.7. He has no pruritus. Hist raises the suspicion of possible biliary sludge as a cause of his pancreatitis and the episode he had few weeks ago. MRCP did not show stones in the duct, Nor did it show pancreas divisum which would be another explanation for pancreatitis. IMPRESSION: 1. Peripancreatic/retroperitoneal inflammatory stranding consistent with radiographically uncomplicated acute interstitial pancreatitis. 2. Small amount of reactive ascites in the abdomen. 3. Small bilateral pleural effusions with consolidation in the right middle lobe as well as in the bilateral lower lobes where there is associated volume loss consistent with atelectasis. Superimposed pneumonia not excludable. 4. Normal gallbladder with no biliary ductal dilation or cholelithiasis/choledocholithiasis. (3) Transaminitis: Code(s): R74.01 - Elevation of levels of liver transaminase levels Status: Acute Assessment and Plan: His transaminases are somewhat lower but oddly, his alkaline phosphatase has steadily risen from on admission 11/10/2004 today. At some point he should have a HIDA scan because I think biliary disease is still very likely Plan if he is able to tolerate his diet, I think he could be discharged. He will need a follow-up to make sure that we get a follow-up of his liver enzymes and probably perform HIDA scan. Subjective Date/time seen: 01/26/23 09:48 he is resting comfortably. He speaks in a very soft voice and is difficult to continue a conversation with him. He denies abdominal pain. He states that he would like to eat more. I told that I thought further workup could be done as an outpatient. Exam Narrative: he lies in bed quietly. He speaks very softly. I asked that that is his baseline and he says yes. Const: General: awake and tired appearing Nutritional Appearance: average body habitus Orientation/consciousness: patient oriented x3 Resp: Auscultation: clear to auscultation bilaterally Cardio: Rhythm: regular rhythm GI: Inspection: normal to inspection GI Palp: Yes Soft to palpation, Yes Tenderness to palpation present (GI) ( Very slight epigastric), No Guarding due to palpation present (GI), Yes No hepatosplenomegaly present and No Ascites present Auscultation: normal bowel sounds Neuro: General: patient oriented x3 Speech: Abnormal speech present ( Low in volume and difficult to understand.) Details: slurred Objective Data Vital Signs Vital Signs: Vital Signs - 24 hr 01/25/23 14:00 01/25/23 17:47 01/25/23 17:48 Temperature 36.6 C Pulse Rate 74 Respiratory Rate 12 Blood Pressure 10
--- NOTE | 2023-01-26 10:15 | P.PNIM_ITS ---
Progress Note: A&P Assessment and Plan (1) Acute pancreatitis: Qualifiers: Acute pancreatitis complication: unspecified Pancreatitis type: unspecified pancreatitis type Qualified Code(s): K85.90 - Acute pancreatitis without necrosis or infection, unspecified Code(s): K85.90 - Acute pancreatitis without necrosis or infection, unspecified Status: Acute Assessment and Plan: * CT of the abdomen shows acute pancreatitis * Lipase 49510 upon admission, currently 297 * AST/ALT elevated 156/264 T. Bili 4.2, trending down currently at 93/142 alk phos 405, t. bili 3.7 * IV fluids given in the ed and decreased to 100mL/hr * lipase normal, continue to trend liver labs * pain medications on board * GI consulted thank you for your help * RUQ ultrasound showed mild gallbladder wall thickening without gallstones * MRCP acute uncomplicated pancreatitis, bilateral pleural effusion, ascites * advanced to low fat diet * add creon * Consider general surgery for gall bladder depending on further findings * Adjust therapy as indicated (2) Elevated liver enzymes: Code(s): R74.8 - Abnormal levels of other serum enzymes Status: Acute Assessment and Plan: * GI has been consulted * Hepatitis panel negative * Abdominal ultrasound was performed and read as mild gallbladder wall thickening without gallstones, nonspecific finding (3) Pneumonia: Code(s): J18.9 - Pneumonia, unspecified organism Status: Acute Assessment and Plan: * Chest xray indicated patchy bilateral airspace disease * Start azithromycin and ceftriaxone * Sputum culture ordered * Blood cultures ordered * WBC slightly elevated * trend symptoms * repeat chest xray in the am (4) CHF (congestive heart failure): Code(s): I50.9 - Heart failure, unspecified Status: Acute Assessment and Plan: * Most likely acute diastolic heart failure in acute exacerbation * Strict I&Os * echo ordered * BNP 541 * one dose of IV lasix given 01/25/23 * MRCP indicated bilateral pleural effusions * Daily weights (5) Acute respiratory failure: Code(s): J96.00 - Acute respiratory failure, unspecified whether with hypoxia or hypercapnia Status: Acute Assessment and Plan: * Noted to be sating at 80% yesterday afternoon * Supplemental oxygen provided * Chest xray indicated PNA * antibiotics started * Wean supplemental oxygen as indicated * Most likely related to PNA * repeat chest xray in the am * CO2 on labs is 34 * Continue to trend labs Plan add stool softeners for constipation Time Spent With Patient Time: 52 minutes Time with patient: Greater than 35 minutes Subjective Date/time seen: 01/26/23 1015 Interval history: 01/26/23 1015 Patient is much more alert this morning. He did state that his abdominal pain comes and goes pretty infrequently. Currently he states his abdominal pain is a 5/10. He would like to eat. He is currently on 4 L of oxygen. He denies any chest pain or shortness of breath. He is still coughing up a lot of sputum. His body temperature is also very cold to the touch. he is mottled on his bilateral arms. 01/25/23 0930 Patient is lying in bed pretty drowsy. He denies any current pain. He does have some urine wh
--- NOTE | 2023-01-26 10:15 | PM.IMPN ---
Progress Note: A&P Assessment and Plan (1) Acute pancreatitis: Qualifiers: Acute pancreatitis complication: unspecified Pancreatitis type: unspecified pancreatitis type Qualified Code(s): K85.90 - Acute pancreatitis without necrosis or infection, unspecified Code(s): K85.90 - Acute pancreatitis without necrosis or infection, unspecified Status: Acute Assessment and Plan: CT of the abdomen shows acute pancreatitis Lipase 98908 upon admission, currently 297 AST/ALT elevated 156/264 T. Bili 4.2, trending down currently at 93/142 alk phos 405, t. bili 3.7 IV fluids given in the ed and decreased to 100mL/hr lipase normal, continue to trend liver labs pain medications on board GI consulted thank you for your help RUQ ultrasound showed mild gallbladder wall thickening without gallstones MRCP acute uncomplicated pancreatitis, bilateral pleural effusion, ascites advanced to low fat diet add creon Consider general surgery for gall bladder depending on further findings Adjust therapy as indicated (2) Elevated liver enzymes: Code(s): R74.8 - Abnormal levels of other serum enzymes Status: Acute Assessment and Plan: GI has been consulted Hepatitis panel negative Abdominal ultrasound was performed and read as mild gallbladder wall thickening without gallstones, nonspecific finding (3) Pneumonia: Code(s): J18.9 - Pneumonia, unspecified organism Status: Acute Assessment and Plan: Chest xray indicated patchy bilateral airspace disease Start azithromycin and ceftriaxone Sputum culture ordered Blood cultures ordered WBC slightly elevated trend symptoms repeat chest xray in the am (4) CHF (congestive heart failure): Code(s): I50.9 - Heart failure, unspecified Status: Acute Assessment and Plan: Most likely acute diastolic heart failure in acute exacerbation Strict I&Os echo ordered BNP 541 one dose of IV lasix given 01/25/23 MRCP indicated bilateral pleural effusions Daily weights (5) Acute respiratory failure: Code(s): J96.00 - Acute respiratory failure, unspecified whether with hypoxia or hypercapnia Status: Acute Assessment and Plan: Noted to be sating at 80% yesterday afternoon Supplemental oxygen provided Chest xray indicated PNA antibiotics started Wean supplemental oxygen as indicated Most likely related to PNA repeat chest xray in the am CO2 on labs is 34 Continue to trend labs Plan add stool softeners for constipation Time Spent With Patient Time: 52 minutes Time with patient: Greater than 35 minutes Subjective Date/time seen: 01/26/23 1015 Interval history: 01/26/23 1015 Patient is much more alert this morning. He did state that his abdominal pain comes and goes pretty infrequently. Currently he states his abdominal pain is a 5/10. He would like to eat. He is currently on 4 L of oxygen. He denies any chest pain or shortness of breath. He is still coughing up a lot of sputum. His body temperature is also very cold to the touch. he is mottled on his bilateral arms. 01/25/23 0930 Patient is lying in bed pretty drowsy. He denies any current pain. He does have some urine which is dark in nature. He does sound pretty rhonchus with auscultation. Will get a chest x-ray for further evaluation. Currently denies any chest pain, shortness a breath, nausea, vomiting, diarrhea constipation. He did state that he has a cough however he cannot tell me what color was coming up. He did tell me that he does smoke. Complete review of systems was unable to really be obtained due to patient's mental status at this time. Patient does seem very lethargic. 01/24/23? 13:27 This is a 47-year-old male patient who has a history of myotonic muscular dystrophy.? The patient came to the emerg
[2023-01-26] MEDS: LIPASE/AMYLASE/PROTEASE 12,000 UNITS CAP 2 CAP PO ×2 (12:10→16:46)
[2023-01-26] MEDS: BISACODYL 10 MG SUPPOSITORY RECTAL (12:10)
[2023-01-26] MEDS: IPRATROPIUM BR 0.02% INH SOLN 0.5 MG/2.5 ML VIAL INHALATION ×2 (15:20→20:23)
[2023-01-26] MEDS: LEVALBUTEROL NEB 1.25 MG/3 ML INHALATION ×2 (15:20→20:23)
[2023-01-26] MEDS: MORPHINE SULFATE (*CRX) 4 MG/ML INJ IV PUSH (16:46)
[2023-01-27] VITALS (12 sets, daily range): BP systolic 111–120; BP diastolic 72–82; PULSE 74–91; RESP 16–22; TEMP 36.4–37.1; O2SAT 95–100
[2023-01-27] MEDS: IPRATROPIUM BR 0.02% INH SOLN 0.5 MG/2.5 ML VIAL INHALATION ×4 (01:22→19:49)
[2023-01-27] MEDS: LEVALBUTEROL NEB 1.25 MG/3 ML INHALATION ×4 (01:23→19:49)
[2023-01-27 06:38] LABS: Basophils Percent Auto 0.3 % (0.2-1.2); Eosinophils Absolute Auto 0.3 K/mm3 (0-0.3); Eosinophils Percent Auto 4.9 % (0-4.4); Hemoglobin 14.4 g/dL (14.0-18.0); Immature Granulocyte Absolute 0.02 K/mm3 (0.00-0.031); Immature Granulocyte Percent A 0.3 % (0-0.5); Lymphocytes Percent Auto 24.3 % (18.3-44.2); Mean Corpuscular HGB Conc 31.3 g/dl (32-36); Mean Corpuscular Hemoglobin 28.5 pg (26-34); Mean Corpuscular Volume 90.9 fl (80-100); Mean Platelet Volume 9.1 fl (7.4-10.4); Monocytes Absolute Auto 0.4 K/mm3 (0.1-0.6); Monocytes Percent Auto 5.3 % (2.6-8.5); Neutrophils Absolute Auto 4.3 K/mm3 (1.3-6.7); Neutrophils Percent Auto 64.9 % (45.5-73.1); Platelet Count Result 212 k/mm3 (150-375); Red Blood Count 5.06 M/mm3 (4.6-6.20); Red Cell Distribution Width 14.1 % (11.5-14.5); White Blood Count 6.6 K/mm3 (4.5-10.0)
[2023-01-27 06:59] LABS: Alanine Aminotransferase 110 U/L (6-50); Albumin Level 3.1 g/dL (3.5-5.1); Alkaline Phosphatase 388 U/L (38-126); Anion Gap 4 mmol/L (8-16); Aspartate Amino Transferase 46 U/L (17-59); Bilirubin,Total 2.2 mg/dL (0.2-1.3); Blood Urea Nitrogen 10 mg/dL (9-20); Calcium 8.2 mg/dL (8.4-10.2); Carbon Dioxide 30 mmol/L (22-30); Chloride 104 mmol/L (98-107); Estimated CRCL calculation 135 ml/min; Estimated Glomerular Filt Rate > 60; Glucose 141 mg/dL (65-110); Lipase 191 U/L (23-300); Magnesium 2.1 mg/dL (1.6-2.3); Potassium 3.5 mmol/L (3.4-5.0); Sodium 138 mmol/L (137-145)
[2023-01-27 07:08] LABS: CRP 18.1 mg/dL (<1.0)
[2023-01-27] MEDS: SENNA/DOCUSATE SODIUM TABLET 1 TAB PO (09:58)
[2023-01-27] MEDS: LIPASE/AMYLASE/PROTEASE 12,000 UNITS CAP 2 CAP PO ×3 (09:58→16:31)
[2023-01-27] MEDS: polyethylene glycoL 3350 17 GM POWD.PACK PO (09:58)
--- NOTE | 2023-01-27 10:00 | P.PNIM_ITS ---
Progress Note: A&P Assessment and Plan (1) Acute pancreatitis: Qualifiers: Acute pancreatitis complication: unspecified Pancreatitis type: unspecified pancreatitis type Qualified Code(s): K85.90 - Acute pancreatitis without necrosis or infection, unspecified Code(s): K85.90 - Acute pancreatitis without necrosis or infection, unspecified Status: Acute Assessment and Plan: * CT of the abdomen shows acute pancreatitis * Lipase 75335 upon admission, currently 191 * AST/ALT elevated 156/264 T. Bili 4.2, trending down currently at 46/110 alk phos 388, t. bili 2.2 * IV fluids given in the ed and decreased to 100mL/hr * lipase normal, continue to trend liver labs * pain medications on board * GI consulted thank you for your help * RUQ ultrasound showed mild gallbladder wall thickening without gallstones * MRCP acute uncomplicated pancreatitis, bilateral pleural effusion, ascites * advanced to low fat diet * Continue creon for 3 weeks per GI * Consider general surgery for gall bladder depending on further findings * Adjust therapy as indicated * HIDA scan in the am (2) Elevated liver enzymes: Code(s): R74.8 - Abnormal levels of other serum enzymes Status: Acute Assessment and Plan: * GI has been consulted * Hepatitis panel negative * Abdominal ultrasound was performed and read as mild gallbladder wall thic kening without gallstones, nonspecific finding (3) Pneumonia: Code(s): J18.9 - Pneumonia, unspecified organism Status: Acute Assessment and Plan: * Chest xray indicated patchy bilateral airspace disease * Continue azithromycin and ceftriaxone * Sputum culture ordered * Blood cultures ordered * WBC slightly elevated * trend symptoms * repeat chest xray found (4) CHF (congestive heart failure): Code(s): I50.9 - Heart failure, unspecified Status: Acute Assessment and Plan: * Most likely acute diastolic heart failure in acute exacerbation * Strict I&Os * echo EF of 65-70% with a grade 1 diastolic heart failure * BNP 541 * one dose of IV lasix given 01/25/23 * MRCP indicated bilateral pleural effusions * Daily weights (5) Acute respiratory failure: Code(s): J96.00 - Acute respiratory failure, unspecified whether with hypoxia or hypercapnia Status: Acute Assessment and Plan: * Noted to be sating at 80% yesterday afternoon * Supplemental oxygen provided * Chest xray indicated PNA * antibiotics continued * Wean supplemental oxygen as indicated * Most likely related to PNA * repeat chest xray found Stable bibasilar airspace opacities, consistent with atelectasis versus pneumonia. * CO2 on labs is 34 * Continue to trend labs Plan add stool softeners for constipation Time Spent With Patient Time: 48 minutes Time with patient: Greater than 35 minutes Subjective Date/time seen: 01/27/23 10:00 Interval history: 01/27/23 10:00 Patient is seen in bed. He stated that he is still having a little bit of cramping style pain in his abdomen which he states is in the left upper side. he also stated that he is having pain in the right upper quadrant as well. He is currently on room air. He denies any chest pain, shortness a breath, nausea, vomiting, diarrhea and constipation. He did st
--- NOTE | 2023-01-27 10:00 | PM.IMPN ---
Progress Note: A&P Assessment and Plan (1) Acute pancreatitis: Qualifiers: Acute pancreatitis complication: unspecified Pancreatitis type: unspecified pancreatitis type Qualified Code(s): K85.90 - Acute pancreatitis without necrosis or infection, unspecified Code(s): K85.90 - Acute pancreatitis without necrosis or infection, unspecified Status: Acute Assessment and Plan: CT of the abdomen shows acute pancreatitis Lipase 13709 upon admission, currently 191 AST/ALT elevated 156/264 T. Bili 4.2, trending down currently at 46/110 alk phos 388, t. bili 2.2 IV fluids given in the ed and decreased to 100mL/hr lipase normal, continue to trend liver labs pain medications on board GI consulted thank you for your help RUQ ultrasound showed mild gallbladder wall thickening without gallstones MRCP acute uncomplicated pancreatitis, bilateral pleural effusion, ascites advanced to low fat diet Continue creon for 3 weeks per GI Consider general surgery for gall bladder depending on further findings Adjust therapy as indicated HIDA scan in the am (2) Elevated liver enzymes: Code(s): R74.8 - Abnormal levels of other serum enzymes Status: Acute Assessment and Plan: GI has been consulted Hepatitis panel negative Abdominal ultrasound was performed and read as mild gallbladder wall thickening without gallstones, nonspecific finding (3) Pneumonia: Code(s): J18.9 - Pneumonia, unspecified organism Status: Acute Assessment and Plan: Chest xray indicated patchy bilateral airspace disease Continue azithromycin and ceftriaxone Sputum culture ordered Blood cultures ordered WBC slightly elevated trend symptoms repeat chest xray found (4) CHF (congestive heart failure): Code(s): I50.9 - Heart failure, unspecified Status: Acute Assessment and Plan: Most likely acute diastolic heart failure in acute exacerbation Strict I&Os echo EF of 65-70% with a grade 1 diastolic heart failure BNP 541 one dose of IV lasix given 01/25/23 MRCP indicated bilateral pleural effusions Daily weights (5) Acute respiratory failure: Code(s): J96.00 - Acute respiratory failure, unspecified whether with hypoxia or hypercapnia Status: Acute Assessment and Plan: Noted to be sating at 80% yesterday afternoon Supplemental oxygen provided Chest xray indicated PNA antibiotics continued Wean supplemental oxygen as indicated Most likely related to PNA repeat chest xray found Stable bibasilar airspace opacities, consistent with atelectasis versus pneumonia. CO2 on labs is 34 Continue to trend labs Plan add stool softeners for constipation Time Spent With Patient Time: 48 minutes Time with patient: Greater than 35 minutes Subjective Date/time seen: 01/27/23 10:00 Interval history: 01/27/23 10:00 Patient is seen in bed. He stated that he is still having a little bit of cramping style pain in his abdomen which he states is in the left upper side. he also stated that he is having pain in the right upper quadrant as well. He is currently on room air. He denies any chest pain, shortness a breath, nausea, vomiting, diarrhea and constipation. He did state that his last meal prior to coming into the hospital was fried chicken. He stated that was the worst pain he has ever had. He does walk with a cane he stated. 01/26/23 1015 Patient is much more alert this morning. He did state that his abdominal pain comes and goes pretty infrequently. Currently he states his abdominal pain is a 5/10. He would like to eat. He is currently on 4 L of oxygen. He denies any chest pain or shortness of breath. He is still coughing up a lot of sputum. His body temperature is also very cold to the touch. he is mottled on his bilateral arms.
--- NOTE | 2023-01-27 10:54 | WPDGIPROGNO ---
Progress Note: A&P Assessment and Plan (1) Acute pancreatitis: Qualifiers: Acute pancreatitis complication: unspecified Pancreatitis type: unspecified pancreatitis type Qualified Code(s): K85.90 - Acute pancreatitis without necrosis or infection, unspecified Code(s): K85.90 - Acute pancreatitis without necrosis or infection, unspecified Status: Acute Assessment and Plan: He states he has never had problems before with his liver or gallbladder.? However, he told me today that he had a similar attack of pain about a month ago that resolved on its own. He does not drink alcohol.? However he was found have pancreatitis with a lipase of over 28,000.? Also L F TS were elevated with bilirubin 2.4, transaminases in the 1 100s and alkaline phosphatase 230.? Prior to yesterday he had a good appetite.? He has had no weight loss.? He does not take any prescription medications at home.? He is not aware of any family history of pancreatic disease. His lipase is now down to normal and he is no longer having abdominal pain. We can advance his diet and send him home on a low-fat diet with Creon for 3 weeks. (2) Hyperbilirubinemia: Code(s): E80.6 - Other disorders of bilirubin metabolism Status: Acute Assessment and Plan: Bilirubin today is down slightly to 3.7. He has no pruritus. Hist raises the suspicion of possible biliary sludge as a cause of his pancreatitis and the episode he had few weeks ago. MRCP did not show stones in the duct, Nor did it show pancreas divisum which would be another explanation for pancreatitis. IMPRESSION: 1. Peripancreatic/retroperitoneal inflammatory stranding consistent with radiographically uncomplicated acute interstitial pancreatitis. 2. Small amount of reactive ascites in the abdomen. 3. Small bilateral pleural effusions with consolidation in the right middle lobe as well as in the bilateral lower lobes where there is associated volume loss consistent with atelectasis. Superimposed pneumonia not excludable. 4. Normal gallbladder with no biliary ductal dilation or cholelithiasis/choledocholithiasis. 01/27/2022 bilirubin is down to 2.2. (3) Transaminitis: Code(s): R74.01 - Elevation of levels of liver transaminase levels Status: Acute Assessment and Plan: His transaminases are somewhat lower but oddly, his alkaline phosphatase has steadily risen from on admission 11/10/2004 today. At some point he should have a HIDA scan because I think biliary disease is still very likely 01/27/2023 transaminases are improving. AST has normalized. alkaline phosphatase still elevated at 388. Plan if he is able to tolerate his diet, I think he could be discharged. He will need a follow-up to make sure that we get a follow-up of his liver enzymes and probably perform HIDA scan. HIDA scan is scheduled for tomorrow. Subjective Date/time seen: 01/27/23 10:54 no complaints of pain. It does not appear that he has been taking it a great deal of nutrition. I do not know what his baseline is, but I suspect he has care for his chronic muscular condition. He did finally have a bowel movement. Exam Narrative: he lies in bed quietly. He speaks very softly. I asked that that is his baseline and he says yes. Const: General: awake and tired appearing Nutritional Appearance: average body habitus Resp: Effort & Inspection: normal respiratory effort Auscultation: clear to auscultation bilaterally Cardio: Rhythm: regular rhythm GI: Inspection: normal to inspection GI Palp: Yes Soft to palpation, No Guarding due to palpation present (GI), Yes No hepatosplenomegaly present and No Ascites present Auscultation: normal bowel sounds Neuro: General: patient oriented x3 Speech: Abnormal speech present ( Low in volume and difficult to understand.) Details: slurred Objective Data Vital Signs Vital Signs: Vital Signs - 24 hr 01/26/23 14:00
[2023-01-27] MEDS: HYDROmorphone HCL INJ (*CRX) 1 MG/ML SYR IV PUSH (12:32)
[2023-01-28] MEDS: IPRATROPIUM BR 0.02% INH SOLN 0.5 MG/2.5 ML VIAL INHALATION ×2 (01:09→07:50)
[2023-01-28 01:10] VITALS: PULSE 70; RESP 18
[2023-01-28] MEDS: LEVALBUTEROL NEB 1.25 MG/3 ML INHALATION ×2 (01:10→07:50)
[2023-01-28 01:21] VITALS: PULSE 75; RESP 20
[2023-01-28 05:56] VITALS: BP 109/77; PULSE 59; RESP 14; TEMP 36.2; O2SAT 100
[2023-01-28 06:27] LABS: Basophils Percent Auto 0.4 % (0.2-1.2); Eosinophils Absolute Auto 0.3 K/mm3 (0-0.3); Eosinophils Percent Auto 4.5 % (0-4.4); Hemoglobin 13.7 g/dL (14.0-18.0); Immature Granulocyte Absolute 0.02 K/mm3 (0.00-0.031); Immature Granulocyte Percent A 0.3 % (0-0.5); Lymphocytes Absolute Auto 1.71 K/mm3 (0.9-3.2); Lymphocytes Percent Auto 22.5 % (18.3-44.2); Mean Corpuscular HGB Conc 30.4 g/dl (32-36); Mean Corpuscular Hemoglobin 28.3 pg (26-34); Mean Platelet Volume 8.9 fl (7.4-10.4); Monocytes Absolute Auto 0.5 K/mm3 (0.1-0.6); Monocytes Percent Auto 6.7 % (2.6-8.5); Neutrophils Percent Auto 65.6 % (45.5-73.1); Platelet Count Result 232 k/mm3 (150-375); Red Blood Count 4.84 M/mm3 (4.6-6.20); Red Cell Distribution Width 14.2 % (11.5-14.5); White Blood Count 7.6 K/mm3 (4.5-10.0)
[2023-01-28 06:38] LABS: Alanine Aminotransferase 81 U/L (6-50); Albumin Level 3.2 g/dL (3.5-5.1); Alkaline Phosphatase 340 U/L (38-126); Anion Gap 3 mmol/L (8-16); Aspartate Amino Transferase 33 U/L (17-59); Bilirubin,Total 1.4 mg/dL (0.2-1.3); Blood Urea Nitrogen 11 mg/dL (9-20); Calcium 8.2 mg/dL (8.4-10.2); Carbon Dioxide 30 mmol/L (22-30); Chloride 103 mmol/L (98-107); Estimated CRCL calculation 117 ml/min; Estimated Glomerular Filt Rate > 60; Glucose 112 mg/dL (65-110); Magnesium 2.3 mg/dL (1.6-2.3); Potassium 4.6 mmol/L (3.4-5.0); Sodium 136 mmol/L (137-145)
--- NOTE | 2023-01-28 07:06 | WPDGIPROGNO ---
Progress Note: A&P Assessment and Plan (1) Acute pancreatitis: Qualifiers: Acute pancreatitis complication: unspecified Pancreatitis type: unspecified pancreatitis type Qualified Code(s): K85.90 - Acute pancreatitis without necrosis or infection, unspecified Code(s): K85.90 - Acute pancreatitis without necrosis or infection, unspecified Status: Acute Assessment and Plan: He states he has never had problems before with his liver or gallbladder.? However, he told me today that he had a similar attack of pain about a month ago that resolved on its own. He does not drink alcohol.? However he was found have pancreatitis with a lipase of over 28,000.? Also L F TS were elevated with bilirubin 2.4, transaminases in the 1 100s and alkaline phosphatase 230.? Prior to yesterday he had a good appetite.? He has had no weight loss.? He does not take any prescription medications at home.? He is not aware of any family history of pancreatic disease. His lipase is now down to normal and he is no longer having abdominal pain. We can advance his diet and send him home on a low-fat diet with Creon for 3 weeks. (2) Hyperbilirubinemia: Code(s): E80.6 - Other disorders of bilirubin metabolism Status: Acute Assessment and Plan: Bilirubin today is down slightly to 3.7. He has no pruritus. Hist raises the suspicion of possible biliary sludge as a cause of his pancreatitis and the episode he had few weeks ago. MRCP did not show stones in the duct, Nor did it show pancreas divisum which would be another explanation for pancreatitis. IMPRESSION: 1. Peripancreatic/retroperitoneal inflammatory stranding consistent with radiographically uncomplicated acute interstitial pancreatitis. 2. Small amount of reactive ascites in the abdomen. 3. Small bilateral pleural effusions with consolidation in the right middle lobe as well as in the bilateral lower lobes where there is associated volume loss consistent with atelectasis. Superimposed pneumonia not excludable. 4. Normal gallbladder with no biliary ductal dilation or cholelithiasis/choledocholithiasis. 01/27/2022 bilirubin is down to 2.2. (3) Transaminitis: Code(s): R74.01 - Elevation of levels of liver transaminase levels Status: Acute Assessment and Plan: His transaminases are somewhat lower but oddly, his alkaline phosphatase has steadily risen from on admission 11/10/2004 today. At some point he should have a HIDA scan because I think biliary disease is still very likely 01/27/2023 transaminases are improving. AST has normalized. alkaline phosphatase still elevated at 388. Plan if he is able to tolerate his diet, I think he could be discharged. He will need a follow-up to make sure that we get a follow-up of his liver enzymes and probably perform HIDA scan. HIDA scan is scheduled for tomorrow. Subjective Date/time seen: 01/28/23 07:06 He denies abdominal pain. He is hungry. I explained him that he is NPO for HIDA scan because we are still suspicious of biliary tract disease as the etiology of his pancreatitis. Exam Narrative: he lies in bed quietly. He speaks very softly. I asked that that is his baseline and he says yes. Const: General: awake, tired appearing and average body habitus Nutritional Appearance: average body habitus Orientation/consciousness: patient oriented x3 Resp: Effort & Inspection: normal respiratory effort Auscultation: clear to auscultation bilaterally Cardio: Rhythm: regular rhythm GI: Inspection: normal to inspection Auscultation: normal bowel sounds Neuro: General: patient oriented x3 Speech: Abnormal speech present ( Low in volume and difficult to understand.) Details: slurred Objective Data Vital Signs Vital Signs: Vital Signs - 24 hr 01/27/23 08:24 01/27/23 08:24 01/27/23 08:33 Temperature Pulse Rate 80 80 74 Respiratory Rate 20 20 Blood Pressure Pulse Oxim
[2023-01-28 07:50] VITALS: PULSE 71; RESP 16; O2SAT 98
[2023-01-28 07:58] VITALS: PULSE 67; RESP 16
[2023-01-28] MEDS: MORPHINE SULFATE (*CRX) 2 MG/ML INJ IV PUSH (09:33)
[2023-01-28 11:47] VITALS: O2SAT 99
--- NOTE | 2023-01-28 12:00 | PM.DS ---
DS: Admitting Diagnosis Discharge Date 01/28/23 1200 Admitting Diagnosis PNA, Acute pancreatitis, transaminitis DS: Discharge Diagnosis Discharge Diagnosis (1) Acute pancreatitis: Qualifiers: Acute pancreatitis complication: unspecified Pancreatitis type: unspecified pancreatitis type Qualified Code(s): K85.90 - Acute pancreatitis without necrosis or infection, unspecified Code(s): K85.90 - Acute pancreatitis without necrosis or infection, unspecified Status: Acute Assessment and Plan: CT of the abdomen shows acute pancreatitis Lipase 60051 upon admission, currently 191 AST/ALT elevated 156/264 T. Bili 4.2, trending down currently at 46/110 alk phos 388, t. bili 2.2 IV fluids given in the ed and decreased to 100mL/hr lipase normal, continue to trend liver labs pain medications on board GI consulted thank you for your help RUQ ultrasound showed mild gallbladder wall thickening without gallstones MRCP acute uncomplicated pancreatitis, bilateral pleural effusion, ascites advanced to low fat diet Continue creon for 3 weeks per GI Consider general surgery for gall bladder depending on further findings Adjust therapy as indicated HIDA scan in the am (2) Elevated liver enzymes: Code(s): R74.8 - Abnormal levels of other serum enzymes Status: Acute Assessment and Plan: GI has been consulted Hepatitis panel negative Abdominal ultrasound was performed and read as mild gallbladder wall thickening without gallstones, nonspecific finding (3) Pneumonia: Code(s): J18.9 - Pneumonia, unspecified organism Status: Acute Assessment and Plan: Chest xray indicated patchy bilateral airspace disease Continue azithromycin and ceftriaxone Sputum culture ordered Blood cultures ordered WBC slightly elevated trend symptoms repeat chest xray found (4) CHF (congestive heart failure): Code(s): I50.9 - Heart failure, unspecified Status: Acute Assessment and Plan: Most likely acute diastolic heart failure in acute exacerbation Strict I&Os echo EF of 65-70% with a grade 1 diastolic heart failure BNP 541 one dose of IV lasix given 01/25/23 MRCP indicated bilateral pleural effusions Daily weights (5) Acute respiratory failure: Code(s): J96.00 - Acute respiratory failure, unspecified whether with hypoxia or hypercapnia Status: Acute Assessment and Plan: Noted to be sating at 80% yesterday afternoon Supplemental oxygen provided Chest xray indicated PNA antibiotics continued Wean supplemental oxygen as indicated Most likely related to PNA repeat chest xray found Stable bibasilar airspace opacities, consistent with atelectasis versus pneumonia. CO2 on labs is 34 Continue to trend labs Plan add stool softeners for constipation DS: Summary Hospital Course Hospital Course: This is a 47 year old male with a past medical history of muscular dystrophy who presented to the ED with complaints of abdominal pain. CT of the adb/pel read probable pancreatitis. MRCP was preformed and confirmed pancreatitis. WBC were elevated upon arrival. T. Bili did peak at 4.2. Currently liver and t. bili Levels are trending down. Lipase is 28,203 upon arrival and is currently down to 191. Patient did have a notable cough and did have acute respiratory failure and needed oxygen as he was satting in the low 80s. Chest x-ray was performed and showed bibasilar airspace opacities consistent with atelectasis versus pneumonia. Patient was placed on IV ceftriaxone and azithromycin. Sputum culture was ordered however was not collected. Patient was given p.r.n. doses of Lasix given the indications of pleural effusions on the chest x-ray and the MRCP. Echo was performed showed an EF of 60-70% grade 1 diastolic dysfunction. Patient was weaned o
--- NOTE | 2023-01-28 12:00 | P.DS_ITS ---
DS: Admitting Diagnosis Discharge Date 01/28/23 1200 Admitting Diagnosis PNA, Acute pancreatitis, transaminitis DS: Discharge Diagnosis Discharge Diagnosis (1) Acute pancreatitis: Qualifiers: Acute pancreatitis complication: unspecified Pancreatitis type: unspecified pancreatitis type Qualified Code(s): K85.90 - Acute pancreatitis without necrosis or infection, unspecified Code(s): K85.90 - Acute pancreatitis without necrosis or infection, unspecified Status: Acute Assessment and Plan: * CT of the abdomen shows acute pancreatitis * Lipase 94868 upon admission, currently 191 * AST/ALT elevated 156/264 T. Bili 4.2, trending down currently at 46/110 alk phos 388, t. bili 2.2 * IV fluids given in the ed and decreased to 100mL/hr * lipase normal, continue to trend liver labs * pain medications on board * GI consulted thank you for your help * RUQ ultrasound showed mild gallbladder wall thickening without gallstones * MRCP acute uncomplicated pancreatitis, bilateral pleural effusion, ascites * advanced to low fat diet * Continue creon for 3 weeks per GI * Consider general surgery for gall bladder depending on further findings * Adjust therapy as indicated * HIDA scan in the am (2) Elevated liver enzymes: Code(s): R74.8 - Abnormal levels of other serum enzymes Status: Acute Assessment and Plan: * GI has been consulted * Hepatitis panel negative * Abdominal ultrasound was performed and read as mild gallbladder wall thickening without gallstones, nonspecific finding (3) Pneumonia: Code(s): J18.9 - Pneumonia, unspecified organism Status: Acute Assessment and Plan: * Chest xray indicated patchy bilateral airspace disease * Continue azithromycin and ceftriaxone * Sputum culture ordered * Blood cultures ordered * WBC slightly elevated * trend symptoms * repeat chest xray found (4) CHF (congestive heart failure): Code(s): I50.9 - Heart failure, unspecified Status: Acute Assessment and Plan: * Most likely acute diastolic heart failure in acute exacerbation * Strict I&Os * echo EF of 65-70% with a grade 1 diastolic heart failure * BNP 541 * one dose of IV lasix given 01/25/23 * MRCP indicated bilateral pleural effusions * Daily weights (5) Acute respiratory failure: Code(s): J96.00 - Acute respiratory failure, unspecified whether with hypoxia or hypercapnia Status: Acute Assessment and Plan: * Noted to be sating at 80% yesterday afternoon * Supplemental oxygen provided * Chest xray indicated PNA * antibiotics continued * Wean supplemental oxygen as indicated * Most likely related to PNA * repeat chest xray found Stable bibasilar airspace opacities, consistent with atelectasis versus pneumonia. * CO2 on labs is 34 * Continue to trend labs Plan add stool softeners for constipation DS: Summary Hospital Course Hospital Course: This is a 47 year old male with a past medical history of muscular dystrophy who presented to the ED with complaints of abdominal pain. CT of the adb/pel read probable pancreatitis. MRCP was preformed and confirmed pancreatitis. WBC were elevated upon arrival. T. Bili did peak at 4.2. Currently liver and t. bili Levels are trending down. Lipase is 28,203 upon arri
== END 2023-01-28 14:24 | disposition home or self-care (01) | DRG 438 ==
LOC: ANHED 12:25 → ANH3MEDSUR 15:04
PROVIDERS: Internal Medicine Gastroenterology; Nurse Practitioner; Admitting Provider Internal Medicine; Emergency Provider Physician Assistant; Visit Provider Nurse Practitioner
DX: K85.90 Acute pancreatitis without necrosis or infection, unspecified (principal); I50.31 Acute diastolic (congestive) heart failure; J18.9 Pneumonia, unspecified organism; J96.00 Acute respiratory failure, unspecified whether with hypoxia or hypercapnia; G71.11 Myotonic muscular dystrophy; E80.6 Other disorders of bilirubin metabolism; R74.01 Elevation of levels of liver transaminase levels
CPT/HCPCS: 36415; 71045; 74176; 74183; 76376; 76705; 78226; 80053; 80061; 80074; 80307; 81001; 82140; 83605; 83690; 83735; 83880; 84439; 84443; 84478; 84480; 85025; 85610; 86140; 87040; 93306; 94640; 96361; 96374; 96375; 96376; 99285; A9270; A9537; A9577; G0378; J0456; J0696; J1170; J1940; J2270; J2405; J7030

== ENCOUNTER 2025-01-14 16:46 | Emergency (ER) | payer MEDICARE, MEDICAID, SELFPAY ==
--- OUTSIDE RECORDS SUMMARY | 2025-01-14 16:49 | XMS_ITS | Patient Health Record ---
Author Organization [facility] Address [address] [place] [address] Care Team Providers Care Publications Writer Name Role Phone Trever Perkins Primary Care Provider Keller Carlie Unavailable [phone] Allergies No Known Allergies Reason For Referral No Information Medications Medication SIG (Take, Route, Frequency, Duration) Notes Start Date End Date Status Wheelchair - as directed 01/24/2021 Acti ve Walker - as directed 01/24/2021 Active Sildenafil Citrate 100 MG TAKE 1 TABLET BY MOUTH ONCE DAILY Active Social History Tobacco Use: Social History Observation Description Date Details (start date - stop date) Current Smoker NA - NA Sex Assigned At : Social History Observation Description Sex Assigned At Male Alcohol Screen (Audit-C) Question Answer Notes Did you have a drink containing alcohol in the p ast year? Yes Tobacco Control (Standard) Question Answer Notes Tobacco use: Current smoker Problems Problem Type SNOMED Code ICD Code Onset Dates Problem Status W/U Status Risk Notes Problem Tobacco user (133676991) Nicotine dependence, unspecified, uncomplicated (F17.200) Active confirmed Problem 258585277 Tobacco use disorder (F17.200) Active confirmed Problem 91655981 Muscular dystrophy (G71.00) Active confirmed Vital Signs Heart Rate 103 /min 12/03/2024 Respiratory Rate 16 /min 12/03/2024 Blood pressure diastolic 86 mm Hg 12/03/2024 Oximetry 97 % 12/03/2024 Height 72 in 12/03/2024 Blood pressure systolic 112 mm Hg 12/03/2024 Encounters Encounter Location Date Provider Diagnosis [facility] [place] [address] 09/25/2024 Carlie Keller [address] [facility] [place] [address] 12/03/2024 Trever Perkins Nicotine dependence, unspecified, uncomplicated F17.200 and Muscular dystrophy G71.00 Assessments Encounter Date Diagnosis (ICD Code) Assessment Notes Treatment Notes Treatment Clinical Notes Section Notes 12/03/2024 Nicotine dependence, unspecified, uncomplicated (ICD-10 - F17.200) 12/03/2024 Muscular dystrophy (ICD-10 - G71.00) Plan Of Treatment No Information Insurance Providers Payer Name Payer Address Payer Phone Subscriber Number Group Number Insured Name Patient Relationship to Insured Coverage Start Date Coverage End Date MEDICARE PART A [address] [place] [address] [id number] Carlos Kunz Self - patient is the insured 2 MEDICAID [address] [facility] [place] [address] [id number] Carlos Kunz Self - patient is the insured 2 Medical (General) History Medical History History ICD Code Muscular Dystrophy Surgical History Surgery Date(Month/Year) [facility]- [facility] 2019
--- OUTSIDE RECORDS SUMMARY | 2025-01-14 16:49 | XMS_ITS | Encounter Summary ---
[facility] Address 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
--- OUTSIDE RECORDS SUMMARY | 2025-01-14 16:49 | XMS_ITS | Clinical Summary ---
Author Organization [facility] Address [address] [place] [address] Phone Care Team Providers Care Administrative Aide Name Role Phone Juanito Theodore MD Primary Care Provider [phone] Allergies No known active allergies Medications ranitidine (ZANTAC) 15 mg/mL solution Take 75 mg by mouth 2 times daily. Active HYDROcodone-acet aminophen (NORCO) 5-325 mg tablet Take 1 Tab by mouth every 4 hours as needed for Pain, Moderate. Max Daily Amount: 6 Tabs 30 Tab None 01/26/2015 Active Active Problems Problem Noted Date Diagnosed Date Fall down stairs 01/26/2015 TBI (traumatic brain injury) 01/26/2015 Forehead laceration 01/26/2015 Fx medial malleolus-closed 01/26/2015 Fracture of middle finger, distal phalanx, close d 01/26/2015 Contusion, chest wall 01/26/2015 Abrasion of left hand 01/26/2015 Abrasion of right knee 01/26/2015 Abrasion of left knee 01/26/2015 Social History Tobacco Use Types Packs/Day Years Used Date Smoking Tobacco: Every Day Cigarettes Alcohol Use Standard Drinks/Week Comments Yes 0 (1 standard drink = 0.6 oz pur e alcohol) rarely Sex and Gender Information Value Date Recorded Sex Assigned at Not on file 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 Gender Identity Not on file Sexual Orientation Not on file Last Filed Vital Signs Vital Sign Reading Time Taken Comments Blood Pressure 114/79 01/26/2015 6:25 PM CDT Pulse 63 01/26/2015 6:25 PM CDT Temperature 36.7 C (98 F) 01/26/2015 2:32 PM CDT Respiratory Rate 18 01/26/2015 6:25 PM CDT Oxygen Saturation 98% 01/26/2015 6:25 PM CDT Inhaled Oxygen Concentration - - Weight 90.7 kg (200 lb) 01/26/2015 2:32 PM CDT Height 182.9 cm (6') 01/26/2015 2:32 PM CDT Body Mass Index 27.12 01/26/2015 2:32 PM CDT Plan of Treatment Health Maintenance Due Date Last Done Comments DTAP/TDAP/TD VACCINES (1 - Tdap) 1992 HEPATITIS B VACCINES (1 of 3 - 19+ 3-dose series) 1992 COLORECTAL SCREENING 2018 Colorectal Cancer Screening 2018 FIT-DNA Q 3 years 2018 FIT/FOBT Q 1 year 2018 Flex Sig/CT Colonography Q 5 years 2018 ZOSTER VACCINE (1 of 2) 2023 INFLUENZA VACCINE (#1) 2024 PNEUMOCOCCAL VACCINE 0-49 YEARS Aged Out No longer eligible based on patient's age to complete this topic Care Teams Administrative Aide Relationship Specialty Start Date End Date Theodore, MD Juanito [address] [facility] [address] [place] [address] PCP - General Family Practice 01/26/15
--- OUTSIDE RECORDS SUMMARY | 2025-01-14 16:49 | XMS_ITS | Encounter Summary ---
Author Organization [facility] Address [address] [place] [address] Care Team Providers Care Supervisor Contact And Service Clerks Name Role Phone Juanito Theodore MD Primary Care Provider [phone] Encounter Details Date Type Department Care Team (Latest Contact Info) Description 10/14/2000 Outpatient Historical [facility] ASHIA Mathis, Charlie Bell MD NO ADDRESS ON FILE Allergy, unspecified not elsewhere classified (Primary Dx) Social History Tobacco Use Types Packs/Day Years Used Date Smoking Tobacco: Never Assessed Sex and Gender Information Value Date Recorded Sex Assigned at Not on file 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
--- OUTSIDE RECORDS SUMMARY | 2025-01-14 16:49 | XMS_ITS | Referral Summary ---
Author Organization [facility] Address [address] [place] [address] Care Team Providers Care Route Returner Name Role Phone Arben Juanito Unavailable [phone] Fredi Ricketts MD PhD Unavailable + No, Physician Primary Care Provider [phone] Allergies No known active allergies Medications raNITIdine (ZANTAC) 150 mg tablet take 1 tablet by oral route 2 times every day 0 0 7 Active Additional Information Patient not taking.Reported on 10/29/[address] (VOLTAREN) 75 mg EC tablet diclofenac sodium 75 mg tablet,delayed release Take 1 tablet(s) 2 TIMES A DAY by oral route with food Active EPINEPHrine (EpiPen 2-Nicolas) 0.3 mg/0.3 mL auto-injection syringe EpiPen 2-Nicolas 0.3 mg/0.3 mL injection, auto-injector Active bisacodyl EC (DULCOLAX EC) 5 mg EC tabletIndicatio ns:constipation Take 5 mg by mouth daily as needed for constipation Active famotidine-Ca carb-mag hydrox (PEPCID COMPLETE) 10-800-165 mg chewable tablet Take 1 tablet by mouth daily as needed for heartburn Active sildenafiL (VIAGRA) 100 mg tablet TAKE 1 TABLET BY MOUTH ONCE DAILY NEEDED FOR 30 DAYS 1 Active Active Problems Problem Noted Date Diagnosed Date Restrictive lung mechanics due to neuromuscular disease 04/18/2018 Obstructive sleep apnea, adult 04/18/2018 Chronic respiratory failure 04/18/2018 Tobacco abuse 01/09/2018 Atypical chest pain 01/09/2018 Abnormal ECG 01/09/2018 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 Abnormal gait 12/11/2016 Overview (03/01/2017): Abnormal gait Nuclear senile cataract 10/31/2012 Hypermetropia 10/31/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 Social History Tobacco Use Types Packs/Day Years Used Date Smoking Tobacco: Every Day Smokeless Tobacco: Never Alcohol Use Standard Drinks/Week Comments No 0 (1 standard drink = 0.6 oz pur e alcohol) Personal Safety Answer Date Recorded Getting School Help Needed Not on file 12/01 Sex and Gender Information Value Date Recorded Sex Assigned at Not on file Legal Sex Male 10:31 PM NATURAL RESOURCES TECHNICIAN Gender Identity Not on file Sexual Orientation Not on file Last Filed Vital Signs Vital Sign Reading Time Taken Comments Blood Pressure 136/96 09/14/2021 9:48 PM NATURAL RESOURCES TECHNICIAN Pulse 97 09/14/2021 9:48 PM NATURAL RESOURCES TECHNICIAN Temperature 36.5 C (97.7 F) 09/14/2021 9:48 PM NATURAL RESOURCES TECHNICIAN Respiratory Rate 18 09/14/2021 9:48 PM NATURAL RESOURCES TECHNICIAN Oxygen Saturation 100% 09/14/2021 9:48 PM NATURAL RESOURCES TECHNICIAN Inhaled Oxygen Concentration - - Weight 68 kg (150 lb) 09/14/2021 9:48 PM NATURAL RESOURCES TECHNICIAN Height 182.9 cm (6') 09/14/2021 9:48 PM NATURAL RESOURCES TECHNICIAN Body Mass Index 20.34 09/14/2021 9:48 PM NATURAL RESOURCES TECHNICIAN Plan of Treatment Not on file Insurance [facility] MEDICARE IDPA Care Teams Route Returner Relationship Specialty Start Date End Date No, Physician PCP - General 10/29/19 Juanito Theodore [address] [place], [place] [address] [place] [address] 01/04/17 Fredi Ricketts MD PhD [address] [place] [address] Referring Physician Neuromuscular Medicine 09/11/19
--- OUTSIDE RECORDS SUMMARY | 2025-01-14 16:49 | XMS_ITS ---
Author Organization [facility] Address [address] [place] [address] Care Team Providers Care Chief Wheelage Clerk Name Role Phone Trever Perkins Primary Care Provider [phone] Allergies No Known Allergies REASON FOR VISIT last seen 2020-- Medications Medication SIG (Take, Route, Frequency, Duration) [...] W/U Status Risk Notes Problem Tobacco user (407050761) Nicotine dependence, unspecified, uncomplicated (F17.200) Active confirmed Vital Signs Height 72 in 12/03/2024 Blood pressure systolic 112 mm Hg 12/03/19 25 Blood pressure diastolic 86 mm Hg 025 Heart Rate 103 /min 12/03/2024 Oximetry 97 % 12/03/2024 Respiratory Rate 16 /min 12/03/2024 Encounters Encounter Location Date Provider Diagnosis [address] [place] [address] 12/03/2024 Trever Perkins Nicotine dependence, unspecified, uncomplicated F17.200 and Muscular dystrophy G71.00 Assessments Encounter Date Diagnosis (ICD Code) Assessment Notes Treatment Notes Treatment Clinical Notes Section Notes 12/03/2024 Nicotine dependence, unspecified, uncomplicated (ICD-10 - F17.200) 12/03/2024 Muscular dystrophy (ICD-10 - G71.00) Plan Of Treatment Medication Medication Name Sig Start Date Stop Date Notes Sildenafil Citrate 100 MG TAKE 1 TABLET BY MOUTH ONCE DAILY Next Appt Details Follow Up: 6 Months,prn, Ashley son: Progress Notes * Carlos KUNZ IIDOB:[birth year] (49 yo M)Acc No.[id number]:12/03/2024 Progress Notes Patient: Carlos GONZALEZ II Provider: Maciel Perkins, MSN, AGPCNP-BC :1975 A ge:49 Y S ex:Male Date:12/03/2024 Address:[facility] [place] [address] Check In:02:06 PM 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 Denies any acute issues or concerns at this time, just needs refill of his sildenafil, which he takes to improve blood flow to his legs. I nterim History: Emergency room visit Y es. Was hospitalized Y es. D epression Screening: PHQ-9 L ittle interest or pleasure in doing things?More than half the days F eeling down, depressed, or hopeless N ot at all T rouble falling or staying asleep, or sleeping too much N ot at all F eeling tired or having little energy N ot at all P oor appetite or overeating N ot at all F eeling bad about yourself or that you are a failure, or have let yourself or your family down N ot at all T rouble concentrating on things, such as reading the newspaper or watching television N ot at all M oving or speaking so slowly that other people could have noticed; or the opposite, being so fidgety or restless that you have been moving around a lot more than usual N ot at all T houghts that you would be better off or of hurting yourself in some way N ot at all T otal Score 2 I nterpretation M inimal Depression S creening: [place] Suicide Severity Rating Scale (LF) D o you want to initiate with S creener form 1 . Wish to be : Have you wished you were or wished you could go to sleep and not wake up? N o 2 . Suicidal Thoughts: Have you actually had any thoughts of killing yourself? N o 6 . Suicide Behavior Question: Have you ever done anything,started to do anything, or prepared to end your life? N o I nterpretation: L ow Risk C SSRS Interpretation and Follow Up Plan: CSSRS Interpretation and Follow Up Plan C SSRS Screen documented using SF Y es R isk Disposition from SF L ow - No Follow Up Plan Required F ollow Up Plan N o Follow Up Plan required at this time. P reventative Health and Wellness follow-up: Action Plans for Clinical Quality Measures: C olorectal Cancer Screening: N ot addressed during this visit. See notes for details. H IV Screening: N ot addressed during this visit. See notes for details. . * ROS: G eneral/Constitutional: Denies C hange in appetite. D enies C hills. D enies F ever. R espiratory: Denies D yspnea. D enies C ough. D enies W heezing. C ardiovascular: Denies E artemio. D enies C hest pain. D enies?Claudication. G astrointestinal: Change in Stools D enies. D enies A bdominal pain.?Denies N ausea. P eripheral Vascular: Admits C old extremities. A dmits P ainful extremities. * Medical History: * Surgical History: C olonoscopy- [place] 2019 * Hospitalization/Major Diagno stic Procedure: D enies Past Hospitalization * Family History: F ather: alive. M other: alive. 2 sister(s) - healthy. . * Social History: P rimary Social History: L iving Arrangement L iving Arrangement: D ependent Living L iving with: O ther: I s this a supportive environment? Y es Alcohol Use A lcohol Use Frequency: M onthly or less Illicit Substance Usage I llicit Substance Usage: N o Employment Status E mployment Status: U nemployed T obacco Use: T obacco Control (Standard) T obacco use: C urrent smoker D rugs/Alcohol: D rugs H ave you used drugs other than those for medical reasons in the past 12 months? N o Alcohol Screen (Audit-C) D id you have a drink containing alcohol in the past year? Y es M iscellaneous: M ethod of learning P referred method of learning: R eading * Medications: T akingWheelchair - Miscellaneous as directed Walker - Miscellaneous as directed Sildenafil Citrate 100 MG Tablet TAKE 1 TABLET BY MOUTH ONCE DAILY NEEDED Taking Wheelchair - Miscellaneous as directed Taking Walker - Miscellaneous as directed Taking Sildenafil Citrate 100 MG Tablet TAKE 1 TABLET BY MOUTH ONCE DAILY NEEDED * Allergies: N .K.D.A.no[Allergies Verified] Objective: * Vitals: I nitials: dt, Ht: 72, BP:112/86, HR:103, Oxygen sat %:97, RR:16, Pain scale:0. * Examination: C QM Exceptions: BMI not documented: R zhanna: P atient Reason T ype of Patient Reason: P atient refused service Pt was in wheelchair. G eneral Examination: GENERAL APPEARANCE: w ell developed, well nourished, in no acute distress. SKIN: w arm and dry, no rashes. HEART: r egular rate and rhythm, no murmurs. LUNGS: r espirations regular and easy, clear to auscultation bilaterally. ABDOMEN: b owel sounds present, soft, nontender, nondistended, no masses palpable, no organomegaly . PSYCH: f ull range of affect/positive mood, good eye contact, speech clear, no auditory or visual hallucinations, thought content without suicidal ideation or delusions. Assessment: * Assessment: 1. N icotine dependence, unspecified, uncomplicated - F17.200 2 . M uscular dystrophy - G71.00 (Primary) Plan: * Treatment: * Recommended Wellness and Pre vention Guidelines: * S tatus A nikos L ast Done N ext Due A ction Taken N ONCOMPLIANT C olorectal cancer screening - 0 12/03/2024 - N ONCOMPLIANT H IV screening - 0 12/03/2024 - * Procedure Codes: 9 9406 BEHAV CHNG SMOKING 3-10 MIN * Preventive Medicine: Counseling: S MOKING: Patient counselled on the dangers of tobacco use and urged to quit. . * Follow Up: 6 Months,prn * * FITTER MARINE Sign off status: Completed true * Provider: Maciel Perkins, MSN, AGPCNP-BC Date: 0 12/03/2024 Generated for Printing/FaSnapOneg/eTransmitting on: 0 01/14/2025 04:48 PM CDT History and Physical Notes * HPI (History of Present Illness) Category Sub-Category Detail Notes Category Not es Interim History Was hospitalized Yes Emergency room visit Yes Depression Screening PHQ-9 Little inte rest or pleasure in doing things: More than half the days Feeling down, depressed, or hopeless: No t at all Trouble falling or staying asleep, or sl eeping too much: Not at all Feeling tired or having little energy: N ot at all Poor appetite or overeating: Not at all Feeling bad about yourself o r that you are a failure, or have let yourself or your family down: Not at all Trouble concentrating on thi ngs, such as reading the newspaper or watching television: Not at all Moving or speaking so slowly that other people could have noticed; or the opposite, being so fidgety or restless that you have been moving around a lot more than usual: Not at all Thoughts that you would be b alphonso off or of hurting yourself in some way: Not at all Total Score: 2 Interpretation: Minimal Depression Screening [place] Suicide Sev erity Rating Scale (LF) Do you want to initiate with: Screener form 1. Wish to be : Have you wished you were or wished you could go to sleep and not wake up?: No 2. Suicidal Thoughts: Have you actually had any thoughts of killing yourself?: No 6. Suicide Behavior Question: Have you ever done anything,started to do anything, or prepared to end your life?: No Interpretation:: Low Risk Preventative Health and Wellness follow-up Action Plans for Clinical Quality Measures: Colorectal Cancer Screening:: Not addressed during this visit. See notes for details. . HIV Screening:: Not addressed during thi s visit. See notes for details. CSSRS Interpretation and Follow Up Plan CSSRS Interpretation and Follow Up Plan CSSRS Screen documented using SF: Yes Risk Disposition from SF: Low - No Follo w Up Plan Required Follow Up Plan: No Follow Up Plan requir ed at this time. Examination Category Sub-Category Detail Notes Category Not es General Examination GENERAL APPEARANCE: well dev eloped, well nourished, in no acute distress HEART: regular rate and rhy thm, no murmurs LUNGS: respirations regular and easy, clear to auscultation bilaterally ABDOMEN: bowel sounds present , soft, nontender, nondistended, no masses palpable, no organomegaly SKIN: warm and dry, no rina hes PSYCH: full range of affect /positive mood, good eye contact, speech clear, no auditory or visual hallucinations, thought content without suicidal ideation or delusions CQM Exceptions BMI not documented: Reason:: Patient Reason Type of Patient Reason:: Patient refused service Pt was in wheelchair.
--- OUTSIDE RECORDS SUMMARY | 2025-01-14 16:49 | XMS_ITS ---
Author Organization [facility] Address [address] [place] [address] Care Team Providers Care Activities Coordinator Name Role Phone Gregorio Trever Primary Care Provider Carlie Keller Unavailable [phone] REASON FOR VISIT PRAPARE Assessment Social History Tobacco Use: Social History Observation Description Date Details (start date - stop date) Current Smoker NA - NA Sex Assigned At : Social History Observation Description Sex Assigned At Male Dont use, Tobacco Use/Smoking Question Answer Notes Are you a current every day smoker Alcohol Screen (Audit-C) Question Answer Notes Did you have a drink containing alcohol in the p ast year? Yes PRAPARE Question Answer Notes Date Completed/Updated: 09/24/2024 What is your current housing situation? I have h ousing Are you worried about losing your housing? No What is the highest level of school that you have finished? More than high school What is your current work situation? 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 Check all that apply I do not have problems meeting my needs Has lack of transportation k ept you from medical appointments, meetings, work or from getting things needed for daily living? No How often do you see or talk to people that you care about and feel close to? (For example: talking to friends on the phone, visiting friends or family, going to pentecostalism or club meetings) More than 5 times a week How stressed are you? Stress is when someone feels tense, nervous, anxious, or can\t sleep at night because their mind is troubled A little bit In the past year have you sp ent more than 2 nights in a row in a senior care, senior care, [place] center, or juvenile correctional facility? Yes Are you a refugee? No What country are you from? [place] Do you feel physically and e motionally safe where you currently live? Yes In the past year, have you b een afraid of your partner or ex-partner? No PRAPARE Score: 4 Encounters Encounter Location Date Provider Diagnosis [address] [place] [address] 09/25/2024 Carlie Keller Plan Of Treatment No Information Progress Notes * Carlos KUNZ IIDOB:[birth year] (49 yo M)Acc No.[id number]:09/25/2024 Patient: Carlos GONZALEZ II :1975 A ge:49 Y S ex:Male Address:[facility] [address], [place], [address] Subjective: * Chief Complaints: * P JAMI Assessment * Medical History: * Surgical History: * Hospitalization/Major Diagno stic Procedure: * Social History: S ocial Determinants: Arabella Ray ate Completed/Updated: 11/25/2023, W hat is your current housing situation? I have housing, A re you worried about losing your housing? N o, W hat is the highest level of school that you have finished? M ore than high school, W hat is your current work situation? 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 Check all that apply I do not have problems meeting my needs, H as lack of transportation kept you from medical appointments, meetings, work or from getting things needed for daily living? N o, H ow often do you see or talk to people that you care about and feel close to? (For example: talking to friends on the phone, visiting friends or family, going to pentecostalism or club meetings) M ore than 5 times a week, H ow stressed are you? Stress is when someone feels tense, nervous, anxious, or can\t sleep at night because their mind is troubled A little bit, I n the past year have you spent more than 2 nights in a row in a senior care, senior care, [place] center, or juvenile correctional facility? Y es, A re you a refugee? N o, W hat country are you from? [place], D o you feel physically and emotionally safe where you currently live? Y es, I n the past year, have you been afraid of your partner or ex-partner? N o, P RAPARE Score: 4 . T obacco Use: D ont use, Tobacco Use/Smoking A re you a c urrent every day smoker. D rugs/Alcohol: A lcohol Screen (Audit-C) D id you have a drink containing alcohol in the past year? Y es. * Medications: Objective: * Vitals: * Physical Examination: Assessment: Plan: * Treatment: * Procedure Codes: * true * Date: Generated for Raul henry/Hood/eTransmitting on: 0 01/14/2025 04:48 PM CDT
--- OUTSIDE RECORDS SUMMARY | 2025-01-14 16:49 | XMS_ITS | Encounter Summary ---
Author Organization [facility] Address [address] [place] [address] Phone Care Team Providers Care Trains Service Conductor Name Role Phone TheodoreJuanito Primary Care Provider [phone] Theodore, Robert Unavailable [phone] Fredi Rikcetts MD PhD Unavailable + No, Physician Primary Care Provider [phone] Encounter Details Date Type Department Care Team (Latest Contact Info) Description 02/20/2018 Orders Only [facility] CONVERSION Scanning, Provider Social History Tobacco Use Types Packs/Day Years Used Date Smoking Tobacco: Every Day Alcohol Use Standard Drinks/Week Comments No 0 (1 standard drink = 0.6 oz pur e alcohol) Sex and Gender Information Value Date Recorded Sex Assigned at Not on file 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 Gender Identity Not on file Sexual Orientation Not on file documented as of this encounter Plan of Treatment Not on file documented as of this encounter Procedures Procedure Name Priority Date/Time Associated Diagnosis Comments PULMONARY FUNCTION TEST (PFT) 02/20/2018 8:09 AM CDT documented in this encounter Results * PULMONARY FUNCTION TEST (PFT) (02/20/2018 8:09 AM CDT) Anatomical Region Laterality Modality PFT us Provider Scanning PFT ORDERABLES Final Result documented in this encounter Visit Diagnoses Not on filedocumented in this encounter Additional Health Concerns Infection Onset Date Last Indicated Resolved Time COVID: Suspected 09/15/2021 09/15/2021 09/16/2021 10:04 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
--- OUTSIDE RECORDS SUMMARY | 2025-01-14 16:49 | XMS_ITS | Encounter Summary ---
Author Organization [facility] Address 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 PULLER Gender Identity Not on file Sexual Orientation Not on file documented as of this encounter Plan of Treatment Not on file documented as of this encounter Procedures Procedure Name Priority Date/Time Associated Diagnosis Comments POTASSIUM LEVEL Stat 12/12/2007 11:22 PM THREAD PULLER XR CHEST PA AND LATERAL 2 VW Routine 12/12/2007 10:30 PM THREAD PULLER CBC WITH DIFFERENTIAL Stat 12/12/2007 9:50 PM THREAD PULLER COMPREHENSIVE METABOLIC PANEL Stat 12/12/2007 9:[address] HEAD WO CONTRAST Routine 12/12/2007 9 :25 PM THREAD PULLER documented in this encounter Results * POTASSIUM LEVEL (12/12/2007 11:22 PM THREAD PULLER) POTASSIUM 3.5 3.5 - 4.9 mmol/L [facility] Blood specimen (specimen) 12/12/2007 11:22 PM THREAD PULLER 12/12/2007 11:24 PM THREAD PULLER us Liu Barros DO CHEMISTRY ORDERABLES Final R esult [facility] [address] [place] [address] * XR CHEST PA AND LATERAL (12/12/2007 10:30 PM THREAD PULLER) Anatomical Region Laterality Modality Chest Other 12/12/2007 10:3 0 PM THREAD PULLER Narrative 12/12/2007 11:08 PM THREAD PULLER [facility] [address] [place], [place] [address] Admit Date: 12/12/2007 CARLOS KUNZ Sex: M Admit Prov: JOAN, AUTHORIZED P Date: 1975 Primary Care Prov: CMRN: [id number] [facility] SSN: [id number] IMAGING SERVICES Ordering Prov: N/A Accession Number: [id number] Interpretation CHEST 2 VIEWS 12/12/2007 History: Numbness. Findings: Examination of the chest in PA and lateral views fails to reveal evidence of active infiltration or consolidation in either lung and there is no effusion or pneumothorax. The heart, aorta and diaphragm, and other mediastinal structures are normal in size, shape and position. The bony structures are unremarkable. Impression: Negative chest. . Dictated by: VANI MALONE 12/12/2007 22:39 Electronically signed by: VANI MALONE 12/12/2007 23:08 Transcribed: 12/12/2007 22:52 SJ Procedure Note Provider, Historical - 12/12/2007 [facility] [address] [place], [place] [address] Admit Date: 12/12/2007 CARLOS KUNZ Sex: M Admit Prov: ER, AUTHORIZED P Date: 1975 Primary Care Prov: CMRN: [id number] Room: ER-A SSN: [id number] IMAGING SERVICES Ordering Prov: N/A Interpretation CHEST 2 VIEWS 12/12/2007 History: Numbness. Findings: Examination of the chest in PA and lateral views fails toreveal evidence of active infiltration or consolidation in either lung andthere is no effusion or pneumothorax. The heart, aorta and diaphragm, andother mediastinal structures are normal in size, shape and position. Thebony structures are unremarkable. Impression: Negative chest. . Dictated by: VANI MALONE 12/12/2007 22:39 Electronically signed by: VANI MALONE 12/12/2007 23:08 Transcribed: 12/12/2007 22:52 SJ us Authorized P Er DIAGNOSTIC IMAGING ORDERABLES Fi nal Result * (ABNORMAL) CBC WITH DIFFERENTIAL (12/12/2007 9:50 PM THREAD PULLER) HEMATOCRIT 48.5(H) 40.0 - 48.0 % [facility] RDW-STDEV 44.6 37.1 - 48.7 fL [facility] RBC 5.44(H) 4.50 - 5.40 M/uL [facility] MCHC 33.0 31.5 - 35.5 % [facility] MCV 89.2 82.0 - 99.0 fL [facility] PLATELETS 246 140 - 350 K/uL [facility] HEMOGLOBIN 16.0 13.6 - 16.5 g/dL [facility] RDW 13.8 11.5 - 14.5 % [facility] WBC 10.0(H) 4.0 - 9.8 K/uL [facility] MCH 29.4 27.2 - 32.6 pg [facility] MPV 10.8 9.3 - 12.4 fL [facility] BASOPHILS 0 0 - 2 % [facility] BASOPHILS ABSOLUTE 0.02 0.00 - 0.20 K/uL [facility] MONOCYTES 8 3 - 13 % [facility] MONOCYTE ABSOLUTE 0.78 0.10 - 1.30 K/uL [facility] NEUTROPHILS 67 45 - 70 % [facility] NEUTROPHIL ABSOLUTE 6.70 1.90 - 7.00 K/uL [facility] EOSINOPHILS 1 0 - 7 % [facility] EOSINOPHIL ABSOLUTE 0.08 0.00 - 0.70 K/uL [facility] LYMPHOCYTES 25 16 - 45 % [facility] LYMPHOCYTE ABSOLUTE 2.46 0.70 - 4.50 K/uL [facility] Blood specimen (specimen) 12/12/2007 9:50 PM THREAD PULLER 12/12/2007 9:56 PM THREAD PULLER us Authorized P Er HEMATOLOGY ORDERABLES Edited INTERFACE SYSTEM Refer to clinic/hospital department [facility] [address] [place] [address] * (ABNORMAL) COMPREHENSIVE METABOLIC PANEL (12/12/2007 9:50 PM THREAD PULLER) ALKALINE PHOSPHATASE 70 40 - 129 U/L [facility] BILIRUBIN TOTAL 0.5 0.2 - 1.0 mg/dL [facility] TOTAL PROTEIN 6.6 6.3 - 8.6 g/dL [facility] CHLORIDE 107 96 - 108 mmol/L [facility] GLUCOSE 88 65 - 99 mg/dL [facility] AST 63(H) 12 - 38 U/L [facility] Comment:Hemolyzed: Result ma y be falsely elevated. BUN 20 6 - 20 mg/dL [facility] CALCIUM 8.8 8.4 - 10.2 mg/dL [facility] CO2 26 22 - 30 mmol/L [facility] ALBUMIN 3.9 3.4 - 4.8 g/dL [facility] POTASSIUM See note. 3.5 - 4.9 mmol/L [facility] Comment: Gross hemolysis present. Result unreliable. Results without potassium reported per RN 12/12/07 10:49 PM. CREATININE 1.07 0.67 - 1.17 mg/dL [facility] SODIUM 141 135 - 145 mmol/L [facility] ALT 129(H) 0 - 41 U/L [facility] Comment:Hemolyzed: Result ma y be falsely elevated. GFR, >60 >=60 mL/min/1. 7 sq meter [facility] GFR >60 >=60 mL/min/1. 7 sq meter [facility] Comment: Estimated GFR rate interpretative information for both Americans and non- Americans is available on the [facility] Intranet at: [email or web address] Select: Lab Policies and Procedures Select: Reference Ranges - GFR Blood specimen (specimen) 12/12/2007 9:50 PM THREAD PULLER 12/12/2007 9:56 PM THREAD PULLER us Authorized P Er CHEMISTRY ORDERABLES Edited [facility] [address] [place] [address] * CT HEAD WO CONTRAST (12/12/2007 9:25 PM THREAD PULLER) Anatomical Region Laterality Modality Head Other 12/12/2007 9:25 PM THREAD PULLER Narrative 12/12/2007 11:08 PM THREAD PULLER [facility] [address] [place], [place] [address] Admit Date: 12/12/2007 CARLOS KUNZ Sex: Ever Admit Prov: ER, AUTHORIZED P Date: 1975 Primary Care Prov: CMRN: [id number] [facility] [address] [place] [address] IMAGING SERVICES Ordering Prov: N/A Accession Number: [id number] Interpretation CT HEAD WITHOUT CONTRAST 12/12/2007 History: Numbness. Technique: Computed tomography of the brain was performed at the standard reference planes, at 5 mm intervals, without intravenous contrast material. Findings: The ventricular system is of normal size and there is no midline shift. No focal areas of abnormal attenuation or mass effect are seen. There is no evidence of acute intracranial hemorrhage. The cortical sulci are normal.The calvarium is intact. Impression: Normal noncontrast CT scan of the brain. . Dictated by: VANI MALONE 12/12/2007 22:44 Electronically signed by: VANI MALONE 12/12/2007 23:08 Transcribed: 12/12/2007 22:56 SJ Procedure Note Provider, Historical - 12/12/2007 [facility] [address], [place] [address] Admit Date: 12/12/2007 CARLOS KUNZ Sex: Ever Admit Prov: ER, AUTHORIZED P Date: 1975 Primary Care Prov: CMRN: [id number] [facility] [address] [place] [address] IMAGING SERVICES Ordering Prov: N/A Interpretation CT HEAD WITHOUT CONTRAST 12/12/2007 History: Numbness. Technique: Computed tomography of the brain was performed at thestandard reference planes, at 5 mm intervals, without intravenous contrastmaterial. Findings: The ventricular system is of normal size and there is nomidline shift. No focal areas of abnormal attenuation or mass effect areseen. There is no evidence of acute intracranial hemorrhage. The corticalsulci are normal.The calvarium is intact. Impression: Normal noncontrast CT scan of the brain. . Dictated by: VANI MALONE 12/12/2007 22:44 Electronically signed by: VANI MALONE 12/12/2007 23:08 Transcribed: 12/12/2007 22:56 SJ us Authorized P Er CT ORDERABLES Final Result documented in this encounter Visit Diagnoses Not on filedocumented in this encounter Care Teams Internal Audit Director Relationship Specialty Start Date End Date Juanito Theodore MD [address] [facility] [address] [place] [id number] PCP - General Family Practice 01/26/15 documented as of this encounter
--- OUTSIDE RECORDS SUMMARY | 2025-01-14 16:49 | XMS_ITS | Continuity of Care Document ---
Author Organization [facility] Address [address] [place] [address] Phone Care Team Providers Care Public Relations Account Supervisor Name Role Phone Andrea Sauer MD Unavailable Allergies, Adverse Reactions, Alerts Substance Reaction Status Criticality No Known Drug Allergies Active No I nformation Medications Medication Instructions Dosage Effective Dates (start - stop) Status Comments No Drug Therapy Prescribed Procedures Procedure Date X-ray exam finger(s), minimum 2 views Ju Supplemental Report Office/outpatient visit,est, mod 2014 Office/outpatient visit,est, mod 2014 Supplemental Report X-ray exam hand, 3+ views Supplemental Report Office/outpatient visit,est, mod 2014 Office/outpatient visit,est, mod 2014 Supplemental Report Office/outpatient visit,new, mod 2014 Supplemental Report X-ray exam finger(s), minimum 2 views Ap X-ray exam ankle, minimum 3 views Stack Splint, Finger Office consultation, moderate 5 Advance Directives Directive Yes / No Effective Date File Name No Information Encounters Encounter Description Practice Location Reason(s) For Visit Diagnoses Date Provider Providers Copied on Encounter Office/outpat ient visit,est, mod [facility], [address], [place], [place], [id number], [place] tel:[phone] [facility] WC- right middle finger (chief complaint) Pain in limb 5 Camacho Mendez. [address] [facility] [place] [address], [place], [place], [id number] , [place]. 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 [address] [facility] [place] [address], [place], [place], [id number] , [place]. tel: [phone] Office/outpat ient visit,est, [facility], [address], [id number], [place] tel:[phone] [facility] WC- est- RLF-right ankle (chief complaint) JOINT PAIN-HAND Camacho Mendez. [address] [facility], [place] [address], [place], [place], [id number] , [place]. tel: [phone] Office/outpat ient visit,est, [facility], [address], [id number], [place] tel:[phone] [facility] head (chief complaint) Brain injury due to traumaJOINT PAIN-HAND 5 Jones Daniel. [address], [id number] , [place]. 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 [address] [facility], [address], [id number] , [place]. tel:[phone] Office consultation, [facility], [address] [place], [place], [id number], [place] tel:[phone] [facility] new work comp right ankle right long finger (chief complaint) JOINT PAIN-ANKLEJO INT PAIN-HAND 5 Camacho Andrea. [address] [facility], [address], [place], [place], [id number] , [place]. tel: [phone] Family History Family Member Type Diagnosis Age At Onset Father Problem (finding) no 1st generation histo ry of PVD Payers Payer name Insurance type Covered libertarian ID Authoriza tion(s) [employer] [id number] Social History Type Description Quantity Date Captured Comments Alcohol Use Details Unknown Caffeine Use Details Unknown Tobacco Use Status Cigarette smoker Smoking Status Current every day smoker 2014 Sex Male Vital Signs Date / Time: Height Weight BMI Pulse Rate Blood Pressure Temperature Respiratory Rate Body Surface Area Head Circumference Head Circ. Percentile Wt./Joseph. Percentile BMI percentile Pulse Ox Inhaled Ox 4:06 PM 0.00 in 90.718 kg (200.00 lbs) 27.1 2 kg/m eter (2) Chief Complaint And Reason For Visit From encounter dated '03/21/2015 13:40'. WC- right middle finger (chief complaint). Description: Carlos comes back into the office 7 weeks and 5 days out from his right middle finger distal phalanx fracture and right lateral ankle sprain that occured on 01-26-15. He states he is having no pain at all. He is working at [employer] in the [employer]. Reason For Referral Reason For Referral No Information Plan Of Treatment Date Type Action Status Referral Ordered: X-ray exam finger(s), minimum 2 views RT middle ordered Referral Ordered: X-ray exam hand, 3+ views LT RLF ordered Referral Ordered: Referrals: Ground Operations Crew Member. Consult ordered Referral Ordered: X-ray exam ankle, minimum 3 views RT ordered Referral Ordered: X-ray exam finger(s), minimum 2 views RT long finger ordered Patient Education Body Mass Index: After Your Visit completed Patient Education Stopping Smoking: After Your Visit completed Patient Education Body Mass Index: After Your Visit completed History Of Present Illness Encounter Date Complaint History Of Prese nt Illness WC- right middle finger Carlosangel luis arellano back into the office 7 weeks and 5 days out from his right middle finger distal phalanx fracture and right lateral ankle sprain that occured on 01-26-15. He states he is having no pain at all. He is working at [employer] in the [employer]. general orthopedic Head trauma H e indicates the injury occurred at work. The problem is better. WC- est- RLF-right ankle Carlos yap back into the office today for his right hand / RLF and right ankle injury which occured at work on 01-26-15. He suffered a right long finger distal phalanx fracture and mild lateral ankle sprain. He is working limited duty at [employer] in the [employer] He states he is improving. head pain 0/10 Upper arm Trauma The injury was w ork related. new work comp right ankle right long finger Functional Status Date Functional Assessmen t No Information Medications Administered Medication Instructions Dosage Effective Dates (start - stop) Status Comments No Drug Therapy Prescribed Instructions Date Instruction Additional Infor mation No Information Assessments Type Assessment Date assessment Pain in limb impression Doing very well Has no pain. Is back at full duty. Pt has reached MMI and is released from my care. I anticipate no further need for any further treatment or medications with respects to this diagnosis Patient Care Teams Name Effective Dates (start - stop) Status Members No Information
--- OUTSIDE RECORDS SUMMARY | 2025-01-14 16:49 | XMS_ITS | Clinical Summary ---
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 Family History Medical History Relation Name Comments Aneurysm Father Aneurysm - (Add ed by TW Conv) Relation Name Status Comments Father Social History Tobacco Use Types Packs/Day Years Used Date Smoking Tobacco: Every Day Smokeless Tobacco: Never Alcohol Use Standard Drinks/Week Comments No 0 (1 standard drink = 0.6 oz pur e alcohol) Personal Safety Answer Date Recorded Getting School Help Needed Not on file 12/01 Sex and Gender Information Value Date Recorded Sex Assigned at Not on file 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 Gender Identity Not on file Sexual Orientation Not on file Obstetrics History Last Filed Vital Signs Vital Sign Reading Time Taken Comments Blood Pressure 136/96 09/14/2021 9:48 PM LONGSHORE EQUIPMENT OPERATOR Pulse 97 09/14/2021 9:48 PM LONGSHORE EQUIPMENT OPERATOR Temperature 36.5 C (97.7 F) 09/14/2021 9:48 PM LONGSHORE EQUIPMENT OPERATOR Respiratory Rate 18 09/14/2021 9:48 PM LONGSHORE EQUIPMENT OPERATOR Oxygen Saturation 100% 09/14/2021 9:48 PM LONGSHORE EQUIPMENT OPERATOR Inhaled Oxygen Concentration - - Weight 68 kg (150 lb) 09/14/2021 9:48 PM LONGSHORE EQUIPMENT OPERATOR Height 182.9 cm (6') 09/14/2021 9:48 PM LONGSHORE EQUIPMENT OPERATOR Body Mass Index 20.34 09/14/2021 9:48 PM LONGSHORE EQUIPMENT OPERATOR Plan of Treatment Not on file Insurance [facility] MEDICARE IDRI Care Teams Tilting Saw Operator Relationship Specialty Start Date End Date No, Physician PCP - General 10/29/19 Juanito Theodore [address] [facility] [address] [place] [phone] 01/04/17 Fredi Ricketts MD PhD [address] [place] [address] Referring Physician Neuromuscular Medicine 09/11/19
[2025-01-14 17:44] VITALS: BP 115/81; PULSE 83; RESP 15; TEMP 36.4; O2SAT 97
--- OUTSIDE RECORDS SUMMARY | 2025-01-14 20:22 | XMS_ITS | Referral Summary ---
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 Gender Identity Not on file Sexual Orientation Not on file Last Filed Vital Signs Vital Sign Reading Time Taken Comments Blood Pressure 136/96 09/14/2021 9:48 PM NEURO PSYCH SALES SPECIALIST Pulse 97 09/14/2021 9:48 PM NEURO PSYCH SALES SPECIALIST Temperature 36.5 C (97.7 F) 09/14/2021 9:48 PM NEURO PSYCH SALES SPECIALIST Respiratory Rate 18 09/14/2021 9:48 PM NEURO PSYCH SALES SPECIALIST Oxygen Saturation 100% 09/14/2021 9:48 PM NEURO PSYCH SALES SPECIALIST Inhaled Oxygen Concentration - - Weight 68 kg (150 lb) 09/14/2021 9:48 PM NEURO PSYCH SALES SPECIALIST Height 182.9 cm (6') 09/14/2021 9:48 PM NEURO PSYCH SALES SPECIALIST Body Mass Index 20.34 09/14/2021 9:48 PM NEURO PSYCH SALES SPECIALIST Plan of Treatment Not on file Insurance [facility] MEDICARE IDPA Care Teams Area Relief Pilot Relationship Specialty Start Date End Date No, Physician PCP - General 10/29/19 Juanito Theodore [address] [place], [place] [address]e Koby [address] [place] [address] 01/04/17 Fredi Ricketts MD PhD [address] [place] [address] Referring Physician Neuromuscular Medicine 09/11/19
--- OUTSIDE RECORDS SUMMARY | 2025-01-14 20:22 | XMS_ITS | Encounter Summary ---
Author Organization [facility] [employer] [facility] Address [address] [place] [address] Phone Care Team Providers Care Readiness Paraprofessional Name Role Phone TheodoreJuanito Primary Care Provider [phone] Theodore, Robert Unavailable [phone] Fredi Ricketts MD PhD Unavailable + No, Physician Primary Care Provider [phone] Encounter Details Date Type Department Care Team [...] on file Legal Sex Male 10:31 PM EATING DISORDER SPECIALIST Gender Identity Not on file Sexual [...] COVID: Suspected 09/15/2021 09/15/2021 09/16/2021 10:04 AM EATING DISORDER SPECIALIST documented as of this encounter Care Teams Readiness Paraprofessional Relationship Specialty Start Date End Date Juanito Theodore [address] [phone] PCP - General 01/04/17 10/28/19 No, Physician PCP - General 10/29/19 Juanito Theodore [address] [address] 01/04/17 Fredi Ricketts MD PhD [address] [facility] [address] [place] [address] Referring Physician Neuromuscular Medicine 09/11/19 documented as of this encounter
--- OUTSIDE RECORDS SUMMARY | 2025-01-14 20:22 | XMS_ITS | Clinical Summary ---
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 Gender Identity Not on file Sexual Orientation Not on file Obstetrics History Last Filed Vital Signs Vital Sign Reading Time Taken Comments Blood Pressure 136/96 09/14/2021 9:48 PM PAMPHLET DISTRIBUTOR Pulse 97 09/14/2021 9:48 PM PAMPHLET DISTRIBUTOR Temperature 36.5 C (97.7 F) 09/14/2021 9:48 PM PAMPHLET DISTRIBUTOR Respiratory Rate 18 09/14/2021 9:48 PM PAMPHLET DISTRIBUTOR Oxygen Saturation 100% 09/14/2021 9:48 PM PAMPHLET DISTRIBUTOR Inhaled Oxygen Concentration - - Weight 68 kg (150 lb) 09/14/2021 9:48 PM PAMPHLET DISTRIBUTOR Height 182.9 cm (6') 09/14/2021 9:48 PM PAMPHLET DISTRIBUTOR Body Mass Index 20.34 09/14/2021 9:48 PM PAMPHLET DISTRIBUTOR Plan of Treatment Not on file Insurance [facility] MEDICARE IDMA Care Teams Meter Technician Relationship Specialty Start Date End Date No, Physician PCP - General 10/29/19 Juanito Theodore [address] [facility] [address] [place] [phone] 01/04/17 Fredi Ricketts MD PhD [address] [place] [address] Referring Physician Neuromuscular Medicine 09/11/19
--- OUTSIDE RECORDS SUMMARY | 2025-01-14 20:22 | XMS_ITS | Encounter Summary ---
Author Organization [facility] Address 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
--- OUTSIDE RECORDS SUMMARY | 2025-01-14 20:22 | XMS_ITS | Clinical Summary ---
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
--- OUTSIDE RECORDS SUMMARY | 2025-01-14 20:22 | XMS_ITS | Encounter Summary ---
Author Organization [facility] Address 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
--- OUTSIDE RECORDS SUMMARY | 2025-01-14 20:22 | XMS_ITS | Continuity of Care Document ---
Author Organization [facility] Address [address] [place] [address] Phone Care Team Providers Care Life Advisor Name Role Phone Andrea Sauer MD Unavailable [...] visit,est, mod [facility], [address], [place], [place], [id number], [place] tel:[phone] [facility] WC- right middle finger (chief complaint) Pain in limb [address] Cam[address] Mendez. [address] [facility], [place] [address], [place], [place], [id number] , [place]. 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 [address] [facility], [place] [address], [place], [place], [id number] , [place]. tel: [phone] Office/outpat ient visit,est, [facility], [address], [id number], [place] tel:[phone] [facility] WC- est- RLF-right ankle (chief complaint) JOINT PAIN-HAND Camacho Mendez. [address] [facility], [place] [address], [place], [place], [id number] , [place]. tel: [phone] Office/outpat ient visit,est, [facility], [address], [id number], [place] tel:[phone] [facility] head (chief complaint) Brain injury due to traumaJOINT PAIN-HAND 5 Jones Daniel. [address], [id number] , [place]. 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 [address] [facility], [address], [id number] , [place]. tel:[phone] Office consultation, [facility], [address] [place], [place], [id number], [place] tel:[phone] [facility] [employer] new work comp right ankle right long finger (chief complaint) JOINT PAIN-ANKLEJO INT PAIN-HAND 5 Camacho Andrea. [address] [facility], [address], [place], [place], [id number] , [place]. tel: [phone] Family History Family Member Type Diagnosis Age At Onset Father Problem (finding) no 1st generation histo ry of PVD Payers Payer name Insurance type Covered democrat ID Authoriza tion(s) [employer] Claims [employer] [id number] Social History Type Description Quantity Date Captured [...] pain at all. He is working at [employer] [place]. Reason For Referral Reason For Referral No Information Plan Of Treatment Date Type Action Status Referral Ordered: X-ray exam finger(s), minimum 2 views RT middle ordered Referral Ordered: X-ray exam hand, 3+ views LT RLF ordered Referral Ordered: Referrals: Tourist Cabin Keeper. Consult ordered Referral Ordered: X-ray exam ankle, [...] pain at all. He is working at [employer] [place]. general orthopedic Head trauma H e indicates the injury occurred at work. The problem is better. WC- est- RLF-right ankle Carlos yap back into the office today for his right hand / RLF and right ankle injury which occured at work on 01-26-15. He suffered a right long finger distal phalanx fracture and mild lateral ankle sprain. He is working limited duty at [employer] [place]. He states he is improving. head pain [...]
--- OUTSIDE RECORDS SUMMARY | 2025-01-14 20:22 | XMS_ITS | Encounter Summary ---
Author Organization [employer] Address 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 Gender Identity Not on file Sexual Orientation Not on file documented as of this encounter Plan of Treatment Not on file documented as of this encounter Procedures Procedure Name Priority Date/Time Associated Diagnosis Comments POTASSIUM LEVEL Stat 12/12/2007 11:22 PM ECOMMERCE MARKETING SPECIALIST XR CHEST PA AND LATERAL 2 VW Routine 12/12/2007 10:30 PM ECOMMERCE MARKETING SPECIALIST CBC WITH DIFFERENTIAL Stat 12/12/2007 9:50 PM ECOMMERCE MARKETING SPECIALIST COMPREHENSIVE METABOLIC PANEL Stat 12/12/2007 9:[address]CE MARKETING [address] HEAD WO CONTRAST Routine 12/12/2007 9 :25 PM ECOMMERCE MARKETING SPECIALIST documented in this encounter Results * POTASSIUM LEVEL (12/12/2007 11:22 PM ECOMMERCE MARKETING SPECIALIST) POTASSIUM 3.5 3.5 - 4.9 mmol/L [facility] Blood specimen (specimen) 12/12/2007 11:22 PM ECOMMERCE MARKETING SPECIALIST 12/12/2007 11:24 PM ECOMMERCE MARKETING SPECIALIST us Liu Barros DO CHEMISTRY ORDERABLES Final R esult [facility] [address] [place] [address] * XR CHEST PA AND LATERAL (12/12/2007 10:30 PM ECOMMERCE MARKETING SPECIALIST) Anatomical Region Laterality Modality Chest Other 12/12/2007 10:3 0 PM ECOMMERCE MARKETING SPECIALIST Narrative 12/12/2007 11:08 PM ECOMMERCE MARKETING SPECIALIST [facility] [place] [place] [address] [place], [place] [address] Admit Date: 12/12/2007 CARLOS KUNZ Sex: M Admit Prov: JOAN, AUTHORIZED P Date: 1975 Primary Care Prov: CMRN: [id number] [facility]: [id number] IMAGING SERVICES Ordering Prov: N/A Accession Number: [id number] Interpretation CHEST 2 VIEWS 12/12/2007 History: Numbness. [...] Procedure Note Provider, Historical - 12/12/2007 [facility] [place] [place] [address] [place], [place] [address] Admit Date: 12/12/2007 CARLOS KUNZ Sex: M Admit Prov: ER, AUTHORIZED P Date: 1975 Primary Care Prov: CMRN: [id number] Room: ER-A SSN: [id number] IMAGING SERVICES Ordering Prov: N/A Interpretation CHEST [...] (ABNORMAL) CBC WITH DIFFERENTIAL (12/12/2007 9:50 PM ECOMMERCE MARKETING SPECIALIST) HEMATOCRIT 48.5(H) 40.0 - 48.0 % [facility] RDW-STDEV 44.6 37.1 - 48.[address] [facility] RBC 5.44(H) 4.50 - 5.40 M/uL [facility] MCHC 33.0 31.5 - 35.5 % [facility] MCV 89.2 82.0 - 99.[address] [facility] PLATELETS 246 140 - 350 K/uL [facility] HEMOGLOBIN 16.0 13.6 - 16.5 g/dL [facility] RDW 13.8 11.5 - 14.5 % [facility] WBC 10.0(H) 4.0 - 9.8 K/uL [facility] MCH 29.4 27.2 - 32.[address] [facility] MPV 10.8 9.3 - 12.[address] [facility] BASOPHILS 0 0 - 2 % [facility] BASOPHILS ABSOLUTE 0.02 0.00 - 0.20 K/uL [facility] MONOCYTES 8 3 - 13 % [facility] MONOCYTE ABSOLUTE 0.78 0.10 - 1.30 K/uL [facility] NEUTROPHILS 67 45 - 70 % [facility] NEUTROPHIL ABSOLUTE 6.70 1.90 - 7.00 K/uL [facility] EOSINOPHILS 1 0 - 7 % [facility] EOSINOPHIL ABSOLUTE 0.08 0.00 - 0.70 K/uL [facility] LYMPHOCYTES 25 16 - 45 % [facility] LYMPHOCYTE ABSOLUTE 2.46 0.70 - 4.50 K/uL [facility] Blood specimen (specimen) 12/12/2007 9:50 PM ECOMMERCE MARKETING SPECIALIST 12/12/2007 9:56 PM ECOMMERCE MARKETING SPECIALIST us Authorized P Er HEMATOLOGY ORDERABLES Edited INTERFACE SYSTEM Refer to clinic/hospital department [facility] [address] [place] [address] * (ABNORMAL) COMPREHENSIVE METABOLIC PANEL (12/12/2007 9:50 PM ECOMMERCE MARKETING SPECIALIST) ALKALINE PHOSPHATASE 70 40 - 129 U/L [facility] BILIRUBIN TOTAL 0.5 0.2 - 1.0 mg/dL [facility] TOTAL PROTEIN 6.6 6.3 - 8.6 g/dL [facility] CHLORIDE 107 96 - 108 mmol/L [facility] GLUCOSE 88 65 - 99 mg/dL [facility] AST 63(H) 12 - 38 U/L [facility] Comment:Hemolyzed: Result ma y be falsely elevated. BUN 20 6 - 20 mg/dL [facility] CALCIUM 8.8 8.4 - 10.2 mg/dL [facility] CO2 26 22 - 30 mmol/L [facility] ALBUMIN 3.9 3.4 - 4.8 g/dL [facility] POTASSIUM See note. 3.5 - 4.9 mmol/L [facility] Comment: Gross hemolysis present. Result unreliable. Results without potassium reported per RN 12/12/07 10:49 PM. CREATININE 1.07 0.67 - 1.17 mg/dL [facility] SODIUM 141 135 - 145 mmol/L [facility] ALT 129(H) 0 - 41 U/L [facility] Comment:Hemolyzed: Result ma y be falsely elevated. GFR, >60 >=60 mL/min/1. [address] [facility] GFR >60 >=60 mL/min/1. [address] [facility] Comment: Estimated GFR rate interpretative information for both Americans and non- Americans is available on the [facility] Intranet at: [email or web address] Select: Lab Policies and Procedures Select: Reference Ranges - GFR Blood specimen (specimen) 12/12/2007 9:50 PM ECOMMERCE MARKETING SPECIALIST 12/12/2007 9:56 PM ECOMMERCE MARKETING SPECIALIST us Authorized P Er CHEMISTRY ORDERABLES Edited [facility] [address] [place] [address] * CT HEAD WO CONTRAST (12/12/2007 9:25 PM ECOMMERCE MARKETING SPECIALIST) Anatomical Region Laterality Modality Head Other 12/12/2007 9:25 PM ECOMMERCE MARKETING SPECIALIST Narrative 12/12/2007 11:08 PM ECOMMERCE MARKETING SPECIALIST [facility] [place] [place] [address] [place], [place] [address] Admit Date: 12/12/2007 CARLOS KUNZ Sex: Ever Admit Prov: ER, AUTHORIZED P Date: 1975 Primary Care Prov: CMRN: [id number] [facility] [address] [place] [address] IMAGING SERVICES Ordering Prov: N/A Accession Number: [id number] Interpretation CT HEAD WITHOUT CONTRAST 12/12/2007 History: [...] Procedure Note Provider, Historical - 12/12/2007 [facility] [place] [place] [address], [place] [address] Admit Date: 12/12/2007 CARLOS KUNZ Sex: Ever Admit Prov: ER, AUTHORIZED P Date: 1975 Primary Care Prov: CMRN: [id number] [facility] [address] [place] [address] IMAGING SERVICES Ordering Prov: N/A Interpretation CT [...] on filedocumented in this encounter Care Teams Keeper Head Relationship Specialty Start Date End Date Juanito Theodore MD [address] [facility] [address] [place] [address] PCP - General Family Practice 01/26/15 documented as of this encounter
--- NOTE | 2025-01-14 20:48 | PC.NURSE ---
Patient upset about wait time-wheeled out of ED by friend
== END 2025-01-15 03:09 | disposition left against medical advice (07) ==
DX: L02.31 Cutaneous abscess of buttock (principal)
CPT/HCPCS: 99199

== ENCOUNTER 2025-01-18 00:59 | Emergency (ER) | payer MEDICARE, MEDICAID, SELFPAY ==
[2025-01-18 01:00] VITALS: BP 118/75; PULSE 90; RESP 16; TEMP 36.7; O2SAT 95
--- OUTSIDE RECORDS SUMMARY | 2025-01-18 01:02 | XMS_ITS | Encounter Summary ---
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
--- OUTSIDE RECORDS SUMMARY | 2025-01-18 01:02 | XMS_ITS | Clinical Summary ---
Author Organization [facility] Address [address] [place] [address] Care Team Providers Care Installation Manager Name Role Phone Arben Juanito Unavailable [phone] Fredi Ricketts MD PhD Unavailable + No, Physician Primary Care Provider [phone] Allergies No known active allergies Medications raNITIdine [...] on file Legal Sex Male 10:31 PM COMPLIANCE ADMINISTRATOR Gender Identity Not on file Sexual Orientation Not on file Obstetrics History Last Filed Vital Signs Vital Sign Reading Time Taken Comments Blood Pressure 136/96 09/14/2021 9:48 PM COMPLIANCE ADMINISTRATOR Pulse 97 09/14/2021 9:48 PM COMPLIANCE ADMINISTRATOR Temperature 36.5 C (97.7 F) 09/14/2021 9:48 PM COMPLIANCE ADMINISTRATOR Respiratory Rate 18 09/14/2021 9:48 PM COMPLIANCE ADMINISTRATOR Oxygen Saturation 100% 09/14/2021 9:48 PM COMPLIANCE ADMINISTRATOR Inhaled Oxygen Concentration - - Weight 68 kg (150 lb) 09/14/2021 9:48 PM COMPLIANCE ADMINISTRATOR Height 182.9 cm (6') 09/14/2021 9:48 PM COMPLIANCE ADMINISTRATOR Body Mass Index 20.34 09/14/2021 9:48 PM COMPLIANCE ADMINISTRATOR Plan of Treatment Not on file Insurance [facility] MEDICARE IDMN Care Teams Installation Manager Relationship Specialty Start Date End Date No, Physician PCP - General 10/29/19 Juanito Theodore [address] [facility] [address] [place] [address] 01/04/17 Fredi Ricketts MD PhD [address] [place] [address] Referring Physician Neuromuscular Medicine 09/11/19
--- OUTSIDE RECORDS SUMMARY | 2025-01-18 01:02 | XMS_ITS | Encounter Summary ---
Author Organization [facility] Address 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
--- OUTSIDE RECORDS SUMMARY | 2025-01-18 01:02 | XMS_ITS ---
Author Organization [facility] Address [address] [place] [address] Care Team Providers Care Ocean Export Coordinator Name Role Phone Trever Perkins Primary Care Provider [phone] Allergies No Known Allergies REASON FOR VISIT [...] W/U Status Risk Notes Problem Tobacco user (549327422) Nicotine dependence, unspecified, uncomplicated (F17.200) Active confirmed Vital Signs Height 72 in 12/03/2024 Blood pressure systolic 112 mm Hg 12/03/19 25 Blood pressure diastolic 86 mm Hg 025 Heart Rate 103 /min 12/03/2024 Respiratory Rate 16 /min 12/03/2024 Oximetry 97 % 12/03/2024 Encounters Encounter Location Date Provider Diagnosis [address] [place] [address] 12/03/2024 Trever Perkins Nicotine dependence, unspecified, uncomplicated [...] Carlos KUNZ IIDOB:[birth year] (49 yo M)Acc No.[id number]:12/03/2024 Progress Notes Patient: Carlos GONZALEZ II Provider: Maciel Perkins, MSN, AGPCNP-BC :1975 A ge:49 Y S ex:Male Date:12/03/2024 Address:[facility] [place] [address] Check In:02:06 PM TOY CONSULTANT Subjective: * Chief Complaints: * L ast seen 2020-- * HPI: S ummary: Carlos presents today to re establish as a new patient, last seen 01/24/21. Hx of muscular dystrophy, sees neurologist and fur scraper at [facility]. Denies any acute issues or concerns at [...] I nterpretation M inimal Depression S creening: [place] Suicide Severity Rating Scale (LF) D o [...] Medical History: * Surgical History: C olonoscopy- [place] 2019 * Hospitalization/Major Diagno stic Procedure: D [...] * Follow Up: 6 Months,prn * * CONSULTANT Sign off status: Completed true * Provider: Maciel Perkins, MSN, AGPCNP-BC Date: 0 12/03/2024 Generated for Printing/[email or web address] on: 0 01/18/2025 01:02 AM CDT History and Physical Notes * HPI [...] Total Score: 2 Interpretation: Minimal Depression Screening [place] Suicide Sev erity Rating Scale (LF) Do [...]
--- OUTSIDE RECORDS SUMMARY | 2025-01-18 01:02 | XMS_ITS | Patient Health Record ---
Author Organization [facility] Address [address] [place] [address] Care Team Providers Care Insurance Billing Specialist Name Role Phone Trever Perkins Primary Care Provider Keller Carlie Unavailable [phone] Allergies No Known Allergies Reason For Referral [...] W/U Status Risk Notes Problem Tobacco user (932229638) Nicotine dependence, unspecified, uncomplicated (F17.200) Active confirmed Problem 847625120 Tobacco use disorder (F17.200) Active confirmed Problem 55104256 Muscular dystrophy (G71.00) Active confirmed Vital Signs Heart Rate 103 /min 12/03/2024 Respiratory Rate 16 /min 12/03/2024 Blood pressure diastolic 86 mm Hg 12/03/2024 Oximetry 97 % 12/03/2024 Height 72 in 12/03/2024 Blood pressure systolic 112 mm Hg 12/03/2024 Encounters Encounter Location Date Provider Diagnosis [facility] [place] [place] [address] 12/03/2024 Trever Perkins Nicotine dependence, unspecified, uncomplicated F17.200 and Muscular dystrophy G71.[address] [place] [address] 09/25/2024 Carlie Keller Assessments Encounter Date Diagnosis (ICD Code) Assessment [...] Date MEDICARE PART A [address] [place] [address] [id number] Carlos Kunz Self - patient is the insured [address] [facility] [place] [address] [id number] Carlos Kunz Self - patient is the insured 2 Medical (General) History Medical History History ICD Code Muscular Dystrophy Surgical History Surgery Date(Month/Year) Colonoscopy- [place] 2019
--- OUTSIDE RECORDS SUMMARY | 2025-01-18 01:02 | XMS_ITS | Clinical Summary ---
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
--- OUTSIDE RECORDS SUMMARY | 2025-01-18 01:02 | XMS_ITS | Encounter Summary ---
Author Organization [facility] Address 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
--- OUTSIDE RECORDS SUMMARY | 2025-01-18 01:02 | XMS_ITS | Encounter Summary ---
Author Organization [facility] Address [address] [place] [address] Care Team Providers Care Behavioral Health Associate Name Role Phone Juanito Theodore MD Primary Care Provider +1- [phone] Encounter Details Date Type Department Care Team (Late st Contact Info) Description 12/12/2007 Outpatient Historical HIS [facility] Er, Authorized P NO ADDRESS ON FILE Liu Barros DO [address] [place] [address] Social History Tobacco Use Types Packs/Day Years Used Date Smoking Tobacco: Never Assessed Sex and Gender Information Value Date Recorded Sex Assigned at Not on file Legal Sex Male 3:57 AM GLASS CHECKER Gender Identity Not on file Sexual Orientation Not on file documented as of this encounter Plan of Treatment Not on file documented as of this encounter Procedures Procedure Name Priority Date/Time Associated Diagnosis Comments POTASSIUM LEVEL Stat 12/12/2007 11:22 PM GLASS CHECKER XR CHEST PA AND LATERAL 2 VW Routine 12/12/2007 10:30 PM GLASS CHECKER CBC WITH DIFFERENTIAL Stat 12/12/2007 9:50 PM GLASS CHECKER COMPREHENSIVE METABOLIC PANEL Stat 12/12/2007 9:[address] HEAD WO CONTRAST Routine 12/12/2007 9 :25 PM GLASS CHECKER documented in this encounter Results * POTASSIUM LEVEL (12/12/2007 11:22 PM GLASS CHECKER) POTASSIUM 3.5 3.5 - 4.9 mmol/L [facility] Blood specimen (specimen) 12/12/2007 11:22 PM GLASS CHECKER 12/12/2007 11:24 PM GLASS CHECKER us Liu Barros DO CHEMISTRY ORDERABLES Final R esult [facility] [address] [place] [address] * XR CHEST PA AND LATERAL (12/12/2007 10:30 PM GLASS CHECKER) Anatomical Region Laterality Modality Chest Other 12/12/2007 10:3 0 PM GLASS CHECKER Narrative 12/12/2007 11:08 PM GLASS CHECKER [facility] [address] [place], [place] [address] Admit Date: 12/12/2007 CARLOS KUNZ Sex: M Admit Prov: JOAN, AUTHORIZED P Date: 1975 Primary Care Prov: CMRN: [id number] [facility] [id number] IMAGING SERVICES Ordering Prov: N/A Accession Number: [id number] Interpretation CHEST 2 VIEWS 12/12/2007 History: Numbness. [...] SJ Procedure Note Provider, Historical - 12/12/2007 [facility] [address] [place], [place] [address] Admit Date: 12/12/2007 CARLOS KUNZ Sex: M Admit Prov: ER, AUTHORIZED P Date: 1975 Primary Care Prov: CMRN: [id number] Room: ER-A SSN: [id number] IMAGING SERVICES Ordering Prov: N/A Interpretation CHEST [...] (ABNORMAL) CBC WITH DIFFERENTIAL (12/12/2007 9:50 PM GLASS CHECKER) HEMATOCRIT 48.5(H) 40.0 - 48.0 % [facility] RDW-STDEV 44.6 37.1 - 48.7 fL [facility] RBC 5.44(H) 4.50 - 5.40 M/uL [facility] MCHC 33.0 31.5 - 35.5 % [facility] MCV 89.2 82.0 - 99.0 fL [facility] PLATELETS 246 140 - 350 K/uL [facility] HEMOGLOBIN 16.0 13.6 - 16.5 g/dL [facility] RDW 13.8 11.5 - 14.5 % [facility] WBC 10.0(H) 4.0 - 9.8 K/uL [facility] MCH 29.4 27.2 - 32.6 pg [facility] MPV 10.8 9.3 - 12.4 fL [facility] BASOPHILS 0 0 - 2 % [facility] BASOPHILS ABSOLUTE 0.02 0.00 - 0.20 K/uL [facility] MONOCYTES 8 3 - 13 % [facility] MONOCYTE ABSOLUTE 0.78 0.10 - 1.30 K/uL [facility] NEUTROPHILS 67 45 - 70 % [facility] NEUTROPHIL ABSOLUTE 6.70 1.90 - 7.00 K/uL [facility] EOSINOPHILS 1 0 - 7 % [facility] EOSINOPHIL ABSOLUTE 0.08 0.00 - 0.70 K/uL [facility] LYMPHOCYTES 25 16 - 45 % [facility] LYMPHOCYTE ABSOLUTE 2.46 0.70 - 4.50 K/uL [facility] Blood specimen (specimen) 12/12/2007 9:50 PM GLASS CHECKER 12/12/2007 9:56 PM GLASS CHECKER us Authorized P Er HEMATOLOGY ORDERABLES Edited INTERFACE SYSTEM Refer to clinic/hospital department [facility] [address] [place] [address] * (ABNORMAL) COMPREHENSIVE METABOLIC PANEL (12/12/2007 9:50 PM GLASS CHECKER) ALKALINE PHOSPHATASE 70 40 - 129 U/L [facility] BILIRUBIN TOTAL 0.5 0.2 - 1.0 mg/dL [facility] TOTAL PROTEIN 6.6 6.3 - 8.6 g/dL [facility] CHLORIDE 107 96 - 108 mmol/L [facility] GLUCOSE 88 65 - 99 mg/dL [facility] AST 63(H) 12 - 38 U/L [facility] Comment:Hemolyzed: Result ma y be falsely elevated. BUN 20 6 - 20 mg/dL [facility] CALCIUM 8.8 8.4 - 10.2 mg/dL [facility] CO2 26 22 - 30 mmol/L [facility] ALBUMIN 3.9 3.4 - 4.8 g/dL [facility] POTASSIUM See note. 3.5 - 4.9 mmol/L [facility] Comment: Gross hemolysis present. Result unreliable. Results without potassium reported per RN 12/12/07 10:49 PM. CREATININE 1.07 0.67 - 1.17 mg/dL [facility] SODIUM 141 135 - 145 mmol/L [facility] ALT 129(H) 0 - 41 U/L [facility] Comment:Hemolyzed: Result ma y be falsely elevated. GFR, >60 >=60 mL/min/1. 7 sq meter [facility] GFR >60 >=60 mL/min/1. 7 sq meter [facility] Comment: Estimated GFR rate interpretative information for both Americans and non- Americans is available on the [facility] Intranet at: [email or web address] by [email or web address] Select: Lab Policies and Procedures Select: Reference Ranges - GFR Blood specimen (specimen) 12/12/2007 9:50 PM GLASS CHECKER 12/12/2007 9:56 PM GLASS CHECKER us Authorized P Er CHEMISTRY ORDERABLES Edited [facility] [address] [place] [address] * CT HEAD WO CONTRAST (12/12/2007 9:25 PM GLASS CHECKER) Anatomical Region Laterality Modality Head Other 12/12/2007 9:25 PM GLASS CHECKER Narrative 12/12/2007 11:08 PM GLASS CHECKER [facility] [address] [place], [place] [address] Admit Date: 12/12/2007 CARLOS KUNZ Sex: Ever Admit Prov: ER, AUTHORIZED P Date: 1975 Primary Care Prov: CMRN: [id number] [facility] [address] [place] [address] IMAGING SERVICES Ordering Prov: N/A Accession Number: [id number] Interpretation CT HEAD WITHOUT CONTRAST 12/12/2007 History: [...] SJ Procedure Note Provider, Historical - 12/12/2007 [facility] [address] [place], [place] [address] Admit Date: 12/12/2007 CARLOS KUNZ Sex: Ever Admit Prov: ER, AUTHORIZED P Date: 1975 Primary Care Prov: CMRN: [id number] [facility] [address] [place] [address] IMAGING SERVICES Ordering Prov: N/A Interpretation CT [...] on filedocumented in this encounter Care Teams Behavioral Health Associate Relationship Specialty Start Date End Date Juanito Theodore MD [address] [facility] [address] [place] [address] PCP - General Family Practice 01/26/15 documented as of this encounter
--- OUTSIDE RECORDS SUMMARY | 2025-01-18 01:02 | XMS_ITS ---
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 Stress is when someone feels tense, nervous, anxious, or can\t sleep at night because their mind is troubled A little bit In the past year have you sp ent more than 2 nights in a row in a [place] health [place] facility, alf, fpc center, or juvenile correctional facility? Yes Are you a refugee? No What country are you from? [place] Do you feel physically and e motionally safe where you currently live? Yes In the past year, have you b een afraid of your partner or ex-partner? 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 Stress is when someone feels tense, nervous, anxious, or can\t sleep at night because their mind is troubled A little bit, I n the past year have you spent more than 2 nights in a row in a [place] health [place], alf, fpc center, or juvenile correctional facility? Y es, [...] Date: Generated for Raul henry/Hood/eTransmitting on: 0 01/18/2025 01:02 AM CDT
--- OUTSIDE RECORDS SUMMARY | 2025-01-18 01:02 | XMS_ITS | Referral Summary ---
Author Organization [facility] Address [address] [place] [address] Care Team Providers Care Coffee Maker Name Role Phone Arben Juanito Unavailable Fredi Ricketts MD PhD Unavailable + No, Physician Primary Care Provider Allergies No known active allergies Medications raNITIdine [...] on file Legal Sex Male 10:31 PM FUR EXAMINER Gender Identity Not on file Sexual Orientation Not on file Last Filed Vital Signs Vital Sign Reading Time Taken Comments Blood Pressure 136/96 09/14/2021 9:48 PM FUR EXAMINER Pulse 97 09/14/2021 9:48 PM FUR EXAMINER Temperature 36.5 C (97.7 F) 09/14/2021 9:48 PM FUR EXAMINER Respiratory Rate 18 09/14/2021 9:48 PM FUR EXAMINER Oxygen Saturation 100% 09/14/2021 9:48 PM FUR EXAMINER Inhaled Oxygen Concentration - - Weight 68 kg (150 lb) 09/14/2021 9:48 PM FUR EXAMINER Height 182.9 cm (6') 09/14/2021 9:48 PM FUR EXAMINER Body Mass Index 20.34 09/14/2021 9:48 PM FUR EXAMINER Plan of Treatment Not on file Insurance [facility] MEDICARE [facility] Address: [address] [address] [place] [address] IDPA Care Teams Coffee Maker Relationship Specialty Start Date End Date No, Physician PCP - General 10/29/19 Juanito Theodore [address] [place], [place] [address]e [address] [place] [address] 01/04/17 Fredi Ricketts MD PhD [address] [place] [address] Referring Physician Neuromuscular Medicine 09/11/19
--- OUTSIDE RECORDS SUMMARY | 2025-01-18 01:02 | XMS_ITS | Continuity of Care Document ---
Author Organization [facility] Address [address] [place] [address] Phone Care Team Providers Care Manager Customs Name Role Phone Andrea Sauer MD Unavailable [...] visit,est, mod [facility], [address], [place], [place], [id number], [place] tel:[phone] [facility] WC- right middle finger (chief complaint) Pain in limb 5 Camacho Mendez. [address] [facility] [place] [address], [place], [place], [id number] , [place]. 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 [address] [facility], [place] [address], [place], [place], [id number] , [place]. tel: [phone] Office/outpat ient visit,est, [facility], [address], [id number], [place] tel:[phone] [facility] WC- est- RLF-right ankle (chief complaint) JOINT PAIN-HAND Camacho Mendez. [address] [facility], [place] [address], [place], [place], [id number] , [place]. tel: [phone] Office/outpat ient visit,est, [facility], [address], [id number], [place] tel:[phone] [facility] head (chief complaint) Brain injury due to traumaJOINT PAIN-HAND 5 Jones Daniel. [address], [id number] , [place]. 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 [address] [facility], [address], [id number] , [place]. tel:[phone] Office consultation, [facility], [address] [place], [place], [id number], [place] tel:[phone] [facility] [place] new work comp right ankle right long finger (chief complaint) JOINT PAIN-ANKLEJO INT PAIN-HAND 5 Camacho Andrea. [address] [facility], [address], [place], [place], [id number] , [place]. tel: [phone] Family History Family Member Type Diagnosis Age At Onset Father Problem (finding) no 1st generation histo ry of PVD Payers Payer name Insurance type Covered libertarian ID Authoriza tion(s) [employer] [id number] Social History Type Description Quantity Date Captured [...] pain at all. He is working at [employer] [place] [employer]. Reason For Referral Reason For Referral No Information Plan Of Treatment Date Type Action Status Referral Ordered: X-ray exam finger(s), minimum 2 views RT middle ordered Referral Ordered: X-ray exam hand, 3+ views LT RLF ordered Referral Ordered: Referrals: Bench Examiner. Consult ordered Referral Ordered: X-ray exam ankle, [...] pain at all. He is working at [employer] [place] [employer]. general orthopedic Head trauma H e indicates the injury occurred at work. The problem is better. WC- est- RLF-right ankle Carlos yap back into the office today for his right hand / RLF and right ankle injury which occured at work on 01-26-15. He suffered a right long finger distal phalanx fracture and mild lateral ankle sprain. He is working limited duty at [employer] in the [employer]. He states he is improving. head pain [...]
--- NOTE | 2025-01-18 01:52 | ED_ITS ---
HPI - Skin/Abscess/Foreign Bdy General Chief complaint: Skin/Abscess/Foreign Body Stated complaint: right butt spider bite Time Seen by Provider: 01/18/25 01:52 Source: patient Mode of arrival: ambulatory Limitations: no limitations History of Present Illness HPI narrative: This is a 49-year-old male that presents emergency department for redness and swelling to the right buttock. Ongoing over the last couple of weeks. Does report some drainage from the area. Denies fevers. Related Data Home Medications ?Medication ?Instructions ?Recorded ?Confirmed ?Last Taken ?Type sildenafil 100 mg tablet 100 mg PO DAILY PRN Sexual Activity 01/24/23 01/18/25 Unknown History Allergies Allergy/AdvReac Type Severity Reaction Status Date / Time No Known Allergies Allergy Mild Verified 01/18/25 01:04 Review of Systems Review of Systems: CONSTITUTIONAL: Denies fever SKIN: Reports redness and swelling All systems reviewed & are unremarkable except as noted in HPI and below PMFSH Past Medical History Medical History Myotonic muscular dystrophy Surgical History Surgical History No history of previous surgery Family History Family History Mother COVID Social History Social History Social History: He lives with his father and has no children. He is single. He is currently unemployed. Code status full code Smoking status: Never smoker Alcohol intake: former Alcohol use details: None in last 1 year Substance use: never Substance use type: does not use Lack of Transportation: No Lack of Food: Never True Current Housing: I Have Housing Concerned About Future Housing: No Difficulty Paying Gas/Electric Bills: No Difficulty Paying for Meds: No Currently Unemployed: No Education: High School Diploma/GED Difficulty w/ Childcare or Family Care: No Gender identity (if verbalized by the patient): Male Spiritual care concerns: No Exam Narrative: GENERAL: Well-appearing, well-nourished, and in no acute distress. HEAD: Normocephalic, atraumatic. EYES: EOMI. CHEST: No respiratory distress. HEART: Regular rate EXTREMITIES: Normal range of motion. No edema. SKIN: Warm, dry, no rash. Right buttock with small area of erythema with central induration NEURO: No focal deficits. Alert and oriented x3. PSYCH: Normal mood and affect Course Course Emergency Course: Patient educated on further wound care Vital Signs Vital signs: Vital Signs Temperature 98.1 F 01/18/25 01:00 Pulse Rate 90 01/18/25 01:00 Respiratory Rate 16 01/18/25 01:00 Blood Pressure 118/75 01/18/25 01:00 Pulse Oximetry 95 01/18/25 01:00 Oxygen Delivery Room Air 01/18/25 01:00 Temperature 98.1 F 01/18/25 01:00 Pulse Rate 90 01/18/25 01:00 Respiratory Rate 16 01/18/25 01:00 Blood Pressure 118/75 01/18/25 01:00 Pulse Oximetry 95 01/18/25 01:00 Oxygen Delivery Room Air 01/18/25 01:00 Procedures Abscess I/D other: Date of Incision: 01/18/25 Time of Incision: 01:55 Side (if applicable): right Local Anesthetic: lidocaine 1% and with epi Amount of anesthesia used (mL): 2 Technique: incised with #11 blade Irrigation: Yes Packing used?: iodoform I&D Results: Pus and Blood MDM - Skin/Abscess/Foreign Bdy MDM Narrative Medical decision making narrative: Patient presents to the emergency department for a small abscess to his right buttock. This was successfully drained. Patient is afebrile and nontoxic appearing. Educated on further wound care. Will be started on oral antibiotics. He is to follow up with primary provider. He was given warnings to return to the ER Differential Diagnosis Differential diagnosis: Likely abscess of skin or subcutaneous tissue and cellulitis Critical Care Time Critical Care Time Critical Care Time: No Discharge Plan Discharge Clinical Impression: Abscess Patient Disposition: Home Condition: Stable Instructions: Antibiotic Form, Abscess (ED) Additional Instructions: Return if symptoms worsen or concerns: any increase in redness, swelling, pain or fever over 101 Take antibiotics as directed. Clean wound with mild soapy water. Apply antibiotic ointment and clean dressing at least twice daily. Warm compresses 3 times a day for 20 minutes each Follow up with primary care in the next 2-3 days for re-evaluation and packing removal Patient Language: Italian Prescriptions: New clindamycin HCl [Cleocin HCl] 300 mg capsule 300 mg PO Q6H 7 Days Qty: 28 0RF No Action sildenafil 100 mg tablet 100 mg PO DAILY PRN (Reason: Sexual Activity) Creon 12,000-38,000 -60,000 unit Capsule,Delayed Release(Dr/Ec) 2 cap PO TIDWM 21 Days Qty: 126 0RF azithromycin 250 mg tablet 250 mg PO DAILY Qty: 2 0RF cefdinir 300 mg capsule 300 mg PO Q12H Qty: 14 0RF Follow-up/Referrals: UNKNOWN,DOCTOR [Primary Care Provider] -
--- OUTSIDE RECORDS SUMMARY | 2025-01-18 02:05 | XMS_ITS | Referral Summary ---
Author Organization [facility] Address [address] [place] [address] Care Team Providers Care Slot Supervisor Name Role Phone Arben Juanito Unavailable [phone] Fredi Ricketts MD PhD Unavailable + No, Physician Primary Care Provider [phone] Allergies No known active allergies Medications raNITIdine [...] on file Legal Sex Male 10:31 PM STAGE RIGGER Gender Identity Not on file Sexual Orientation Not on file Last Filed Vital Signs Vital Sign Reading Time Taken Comments Blood Pressure 136/96 09/14/2021 9:48 PM STAGE RIGGER Pulse 97 09/14/2021 9:48 PM STAGE RIGGER Temperature 36.5 C (97.7 F) 09/14/2021 9:48 PM STAGE RIGGER Respiratory Rate 18 09/14/2021 9:48 PM STAGE RIGGER Oxygen Saturation 100% 09/14/2021 9:48 PM STAGE RIGGER Inhaled Oxygen Concentration - - Weight 68 kg (150 lb) 09/14/2021 9:48 PM STAGE RIGGER Height 182.9 cm (6') 09/14/2021 9:48 PM STAGE RIGGER Body Mass Index 20.34 09/14/2021 9:48 PM STAGE RIGGER Plan of Treatment Not on file Insurance [facility] MEDICARE IDPA Care Teams Slot Supervisor Relationship Specialty Start Date End Date No, Physician PCP - General 10/29/19 Juanito Theodore [address] [place] [address]e [address] [place] [address] 01/04/17 Fredi Ricketts MD PhD [address] [place] [address] Referring Physician Neuromuscular Medicine 09/11/19
--- OUTSIDE RECORDS SUMMARY | 2025-01-18 02:05 | XMS_ITS | Encounter Summary ---
Author Organization [facility] [employer] [facility] Address [address] [place] [address] Phone Care Team Providers Care Manager Food Safety Name Role Phone TheodoreJuanito Primary Care Provider [phone] Theodore, Robert Unavailable [phone] Fredi Ricketts MD PhD Unavailable + No, Physician Primary Care Provider [phone] Encounter Details Date Type Department Care Team [...] on file Legal Sex Male 10:31 PM LOOM CHECKER Gender Identity Not on file Sexual [...] COVID: Suspected 09/15/2021 09/15/2021 09/16/2021 10:04 AM LOOM CHECKER documented as of this encounter Care Teams Manager Food Safety Relationship Specialty Start Date End Date Juanito Theodore [address] [id number] PCP - General 01/04/17 10/28/19 No, Physician PCP - General 10/29/19 Juanito Theodore [address] [address] 01/04/17 Fredi Ricketts MD PhD [address] [facility] [address] [place] [address] Referring Physician Neuromuscular Medicine 09/11/19 documented as of this encounter
--- OUTSIDE RECORDS SUMMARY | 2025-01-18 02:05 | XMS_ITS | Clinical Summary ---
Author Organization 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
--- OUTSIDE RECORDS SUMMARY | 2025-01-18 02:05 | XMS_ITS | Continuity of Care Document ---
Author Organization [facility] Address [address] [place] [address] Phone Care Team Providers Care Photographer Model Name Role Phone Andrea Sauer MD Unavailable [...] visit,est, mod [facility], [address], [place], [place], [id number], [place] tel:[phone] [facility] WC- right middle finger (chief complaint) Pain in limb [address] M[address]. [address] [facility], [place] [address], [place], [place], [id number] , [place]. 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 [address] [facility], [place] [address], [place], [place], [id number] , [place]. tel: [phone] Office/outpat ient visit,est, [facility], [address], [id number], [place] tel:[phone] [facility] WC- est- RLF-right ankle (chief complaint) JOINT PAIN-HAND Camacho Mendez. [address] [facility], [place] [address], [place], [place], [id number] , [place]. tel: [phone] Office/outpat ient visit,est, [facility], [address], [id number], [place] tel:[phone] [facility] head (chief complaint) Brain injury due to traumaJOINT PAIN-HAND 5 Jones Daniel. [address], [id number] , [place]. 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 [address] [facility], [address], [id number] , [place]. tel:[phone] Office consultation, [facility], [address] [place], [place], [id number], [place] tel:[phone] [facility] [employer] new work comp right ankle right long finger (chief complaint) JOINT PAIN-ANKLEJO INT PAIN-HAND 5 Camacho Andrea. [address] [facility], [address], [place], [place], [id number] , [place]. tel: [phone] Family History Family Member Type Diagnosis Age At Onset Father Problem (finding) no 1st generation histo ry of PVD Payers Payer name Insurance type Covered libertarian ID Authoriza tion(s) [employer] [id number] Social History Type Description Quantity Date Captured [...] pain at all. He is working at [employer] in the [employer]. Reason For Referral Reason For Referral No Information Plan Of Treatment Date Type Action Status Referral Ordered: X-ray exam finger(s), minimum 2 views RT middle ordered Referral Ordered: X-ray exam hand, 3+ views LT RLF ordered Referral Ordered: Referrals: Sorter Packer. Consult ordered Referral Ordered: X-ray exam ankle, [...] pain at all. He is working at [employer] in the [employer]. general orthopedic Head trauma H e indicates the injury occurred at work. The problem is better. WC- est- RLF-right ankle Carlos yap back into the office today for his right hand / RLF and right ankle injury which occured at work on 01-26-15. He suffered a right long finger distal phalanx fracture and mild lateral ankle sprain. He is working limited duty at [employer] in the [employer]. He states he is improving. head pain [...]
--- OUTSIDE RECORDS SUMMARY | 2025-01-18 02:05 | XMS_ITS | Encounter Summary ---
Author Organization [facility] Address [address] [place] [address] Care Team Providers Care Associate Entertainment Editor Name Role Phone Juanito Theodore MD Primary Care Provider [phone] Encounter Details Date Type Department Care Team (Latest Contact Info) Description 01/21/2001 Outpatient Historical HIS [facility] ASHIA Ochoa, Juanito Riley MD NO ADDRESS ON FILE Injury, other and unspecified, knee, leg, ankle, and foot (Primary Dx) Social History Tobacco Use Types Packs/Day Years Used Date Smoking Tobacco: Never Assessed Sex and Gender Information Value Date Recorded Sex Assigned at Not on file 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
--- OUTSIDE RECORDS SUMMARY | 2025-01-18 02:05 | XMS_ITS | Encounter Summary ---
Author Organization [facility] Address 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 Gender Identity Not on file Sexual Orientation Not on file documented as of this encounter Plan of Treatment Not on file documented as of this encounter Procedures Procedure Name Priority Date/Time Associated Diagnosis Comments POTASSIUM LEVEL Stat 12/12/2007 11:22 PM PRINTER FLOOR COVERING ASSISTANT XR CHEST PA AND LATERAL 2 VW Routine 12/12/2007 10:30 PM PRINTER FLOOR COVERING ASSISTANT CBC WITH DIFFERENTIAL Stat 12/12/2007 9:50 PM PRINTER FLOOR COVERING ASSISTANT COMPREHENSIVE METABOLIC PANEL Stat 12/12/2007 9:50 PM PRINTER FLOOR COVERING ASSISTANT CT HEAD WO CONTRAST Routine 12/12/2007 9 :25 PM PRINTER FLOOR COVERING ASSISTANT documented in this encounter Results * POTASSIUM LEVEL (12/12/2007 11:22 PM PRINTER FLOOR COVERING ASSISTANT) POTASSIUM 3.5 3.5 - 4.9 mmol/L [facility] Blood specimen (specimen) 12/12/2007 11:22 PM PRINTER FLOOR COVERING ASSISTANT 12/12/2007 11:24 PM PRINTER FLOOR COVERING ASSISTANT us Liu Barros DO CHEMISTRY ORDERABLES Final R esult [facility] [address] [place] [address] * XR CHEST PA AND LATERAL (12/12/2007 10:30 PM PRINTER FLOOR COVERING ASSISTANT) Anatomical Region Laterality Modality Chest Other 12/12/2007 10:3 0 PM PRINTER FLOOR COVERING ASSISTANT Narrative 12/12/2007 11:08 PM PRINTER FLOOR COVERING ASSISTANT [facility] [address] [place], [place] [address] Admit Date: 12/12/2007 CARLOS KUNZ Sex: M Admit Prov: JOAN, AUTHORIZED P Date: 1975 Primary Care Prov: CMRN: [id number] [facility] SS[facility]: [id number] IMAGING SERVICES Ordering Prov: N/A Accession Number: [id number] Interpretation CHEST 2 VIEWS 12/12/2007 History: Numbness. [...] SJ Procedure Note Provider, Historical - 12/12/2007 [facility] [address] [place], [place] [address] Admit Date: 12/12/2007 CARLOS KUNZ Sex: M Admit Prov: ER, AUTHORIZED P Date: 1975 Primary Care Prov: CMRN: [id number] Room: ER-A SSN: [id number] IMAGING SERVICES Ordering Prov: N/A Interpretation CHEST [...] (ABNORMAL) CBC WITH DIFFERENTIAL (12/12/2007 9:50 PM PRINTER FLOOR COVERING ASSISTANT) HEMATOCRIT 48.5(H) 40.0 - 48.0 % [facility] RDW-STDEV 44.6 37.1 - 48.7 fL [facility] RBC 5.44(H) 4.50 - 5.40 M/uL [facility] MCHC 33.0 31.5 - 35.5 % [facility] MCV 89.2 82.0 - 99.0 fL [facility] PLATELETS 246 140 - 350 K/uL [facility] HEMOGLOBIN 16.0 13.6 - 16.5 g/dL [facility] RDW 13.8 11.5 - 14.5 % [facility] WBC 10.0(H) 4.0 - 9.8 K/uL [facility] MCH 29.4 27.2 - 32.6 pg [facility] MPV 10.8 9.3 - 12.4 fL [facility] BASOPHILS 0 0 - 2 % [facility] BASOPHILS ABSOLUTE 0.02 0.00 - 0.20 K/uL [facility] MONOCYTES 8 3 - 13 % [facility] MONOCYTE ABSOLUTE 0.78 0.10 - 1.30 K/uL [facility] NEUTROPHILS 67 45 - 70 % [facility] NEUTROPHIL ABSOLUTE 6.70 1.90 - 7.00 K/uL [facility] EOSINOPHILS 1 0 - 7 % [facility] EOSINOPHIL ABSOLUTE 0.08 0.00 - 0.70 K/uL [facility] LYMPHOCYTES 25 16 - 45 % [facility] LYMPHOCYTE ABSOLUTE 2.46 0.70 - 4.50 K/uL [facility] Blood specimen (specimen) 12/12/2007 9:50 PM PRINTER FLOOR COVERING ASSISTANT 12/12/2007 9:56 PM PRINTER FLOOR COVERING ASSISTANT us Authorized P Er HEMATOLOGY ORDERABLES Edited INTERFACE SYSTEM Refer to clinic/hospital department [facility] [address] [place] [address] * (ABNORMAL) COMPREHENSIVE METABOLIC PANEL (12/12/2007 9:50 PM PRINTER FLOOR COVERING ASSISTANT) ALKALINE PHOSPHATASE 70 40 - 129 U/L [facility] BILIRUBIN TOTAL 0.5 0.2 - 1.0 mg/dL [facility] TOTAL PROTEIN 6.6 6.3 - 8.6 g/dL [facility] CHLORIDE 107 96 - 108 mmol/L [facility] GLUCOSE 88 65 - 99 mg/dL [facility] AST 63(H) 12 - 38 U/L [facility] Comment:Hemolyzed: Result ma y be falsely elevated. BUN 20 6 - 20 mg/dL [facility] CALCIUM 8.8 8.4 - 10.2 mg/dL [facility] CO2 26 22 - 30 mmol/L [facility] ALBUMIN 3.9 3.4 - 4.8 g/dL [facility] POTASSIUM See note. 3.5 - 4.9 mmol/L [facility] Comment: Gross hemolysis present. Result unreliable. Results without potassium reported per RN 12/12/07 10:49 PM. CREATININE 1.07 0.67 - 1.17 mg/dL [facility] SODIUM 141 135 - 145 mmol/L [facility] ALT 129(H) 0 - 41 U/L [facility] Comment:Hemolyzed: Result ma y be falsely elevated. GFR, >60 >=60 mL/min/1. 7 sq meter [facility] GFR >60 >=60 mL/min/1. 7 sq meter [facility] Comment: Estimated GFR rate interpretative information for both Americans and non- Americans is available on the [facility] Intranet at: [email or web address] Select: Lab Policies and Procedures Select: Reference Ranges - GFR Blood specimen (specimen) 12/12/2007 9:50 PM PRINTER FLOOR COVERING ASSISTANT 12/12/2007 9:56 PM PRINTER FLOOR COVERING ASSISTANT us Authorized P Er CHEMISTRY ORDERABLES Edited [facility] [address] [place] [address] * CT HEAD WO CONTRAST (12/12/2007 9:25 PM PRINTER FLOOR COVERING ASSISTANT) Anatomical Region Laterality Modality Head Other 12/12/2007 9:25 PM PRINTER FLOOR COVERING ASSISTANT Narrative 12/12/2007 11:08 PM PRINTER FLOOR COVERING ASSISTANT [facility] [address] [place], [place] [address] Admit Date: 12/12/2007 CARLOS KUNZ Sex: Ever Admit Prov: ER, AUTHORIZED P Date: 1975 Primary Care Prov: CMRN: [id number] [facility] [address] [place] [address] IMAGING SERVICES Ordering Prov: N/A Accession Number: [id number] Interpretation CT HEAD WITHOUT CONTRAST 12/12/2007 History: [...] SJ Procedure Note Provider, Historical - 12/12/2007 [facility] [address], [place] [address] Admit Date: 12/12/2007 CARLOS KUNZ Sex: Ever Admit Prov: ER, AUTHORIZED P Date: 1975 Primary Care Prov: CMRN: [id number] Room: [facility]: [address] [place] [address] IMAGING SERVICES Ordering Prov: N/A Interpretation CT [...] on filedocumented in this encounter Care Teams Correctional Nurse Relationship Specialty Start Date End Date Juanito Theodore MD [address] [facility] [address] [place] [phone] PCP - General Family Practice 01/26/15 documented as of this encounter
--- OUTSIDE RECORDS SUMMARY | 2025-01-18 02:05 | XMS_ITS | Encounter Summary ---
Author Organization [facility] Address 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
--- OUTSIDE RECORDS SUMMARY | 2025-01-18 02:05 | XMS_ITS | Clinical Summary ---
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 Gender Identity Not on file Sexual Orientation Not on file Obstetrics History Last Filed Vital Signs Vital Sign Reading Time Taken Comments Blood Pressure 136/96 09/14/2021 9:48 PM CLIENT DEVELOPMENT DIRECTOR Pulse 97 09/14/2021 9:48 PM CLIENT DEVELOPMENT DIRECTOR Temperature 36.5 C (97.7 F) 09/14/2021 9:48 PM CLIENT DEVELOPMENT DIRECTOR Respiratory Rate 18 09/14/2021 9:48 PM CLIENT DEVELOPMENT DIRECTOR Oxygen Saturation 100% 09/14/2021 9:48 PM CLIENT DEVELOPMENT DIRECTOR Inhaled Oxygen Concentration - - Weight 68 kg (150 lb) 09/14/2021 9:48 PM CLIENT DEVELOPMENT DIRECTOR Height 182.9 cm (6') 09/14/2021 9:48 PM CLIENT DEVELOPMENT DIRECTOR Body Mass Index 20.34 09/14/2021 9:48 PM CLIENT DEVELOPMENT DIRECTOR Plan of Treatment Not on file Insurance [facility] MEDICARE IDMT Care Teams Hat Liner Relationship Specialty Start Date End Date No, Physician PCP - General 10/29/19 Juanito Theodore [address] [facility] [address] [place] [phone] 01/04/17 Fredi Ricketts MD PhD [address] [place] [address] Referring Physician Neuromuscular Medicine 09/11/19
[2025-01-18 02:32] VITALS: BP 122/72; PULSE 84; RESP 16; O2SAT 96
== END 2025-01-18 02:34 | disposition home or self-care (01) ==
LOC: ANHED 02:02
PROVIDERS: Emergency Provider Physician Assistant
DX: L02.31 Cutaneous abscess of buttock (principal); G71.11 Myotonic muscular dystrophy
CPT/HCPCS: 10061; 87070; 87075; 87181; 87205; 99283; J2004